=== PATIENT | male | born 1945 | race Caucasian/White ===

== ENCOUNTER 2019-11-28 06:49 | Inpatient (IN) | payer MEDICARE, SELFPAY ==
[2019-11-28] VITALS (8 sets, daily range): BP systolic 151–163; BP diastolic 79–109; PULSE 76–93; RESP 12–20; TEMP 36.5–37; O2SAT 98–100; BMI 23.8
--- NOTE | ~2019-11-28 | XR_ITS ---
EXAMINATION: XR chest 2V DATE: 11/30/2019 10:51 INDICATION: Pneumonia follow-up TECHNIQUE: frontal and lateral views of the chest were obtained. COMPARISON: Chest radiograph dated 11/28/2019 FINDINGS: No significant interval change in mild peripheral opacities at the lateral right upper lung zone. Sma ll bilateral pleural effusions evident only on the lateral projection. No new airspace opacities or p neumothorax. The cardiomediastinal silhouette is normal. Oral contrast in the stomach from recent [facility] ium swallow study. IMPRESSION: 1. Unchanged mild peripheral opacities in the right upper lobe consistent with pneumonia. 2. Small bilateral pleural effusions. Reviewed, dictated and finalized at location B.
--- NOTE | ~2019-11-28 | CT_ITS ---
EXAMINATION: CT brain wo con DATE: 11/28/2019 08:41 INDICATION: Altered mental status. Confusion. TECHNIQUE: Computed tomography (CT) of the head was performed without intravenous contrast. The mA wa s adjusted according to patient size. Iterative reconstruction technique was employed. The dose-lengt h product was 605.33 mGy-cm. COMPARISON: Head CT 07/26/2018 FINDINGS: There are scattered areas of low attenuation in the cerebral white matter. There is no intr acranial hemorrhage, acute infarction, or abnormal intracranial mass lesion. The ventricles are ashley l in size. There is mild mucosal thickening in the paranasal sinuses. The mastoid air cells are ashley l. The orbits are normal. IMPRESSION: 1. Unchanged moderate nonspecific cerebral white matter disease, which likely represents chronic smal l vessel ischemic disease. Reviewed, dictated and finalized at location A. IMPRESSION: 1. Unchanged moderate nonspecific cerebral white matter disease, which likely r epresents chronic small vessel ischemic disease.
--- NOTE | ~2019-11-28 | XR_ITS ---
XR chest 2V DATE: 12/02/2019 09:31 INDICATION: Pneumonia follow-up TECHNIQUE: AP and lateral views COMPARISON: 11/30/2019, 11/28/2019, 01/11/2019 2 view chest radiographic examinations FINDINGS: Mild asymmetric interstitial prominence is again noted in the right upper lobe, stable sinc e 12/01/2019. Otherwise no pulmonary consolidation. No pleural effusion or pulmonary vascular congestio n or pneumothorax. Heart size is within normal limits. Is aortic calcification. Diffuse osteopenia. Degenerative changes of the thoracic and lumbar spine. IMPRESSION: No significant change since 12/01/2019; mild interstitial fibrotic change or pneumonitis, r ight upper lobe Reviewed, dictated and finalized at location A. IMPRESSION: No significant change since 12/01/2019; mild interstitial fibrotic ch julio or pneumonitis, right upper lobe
--- NOTE | ~2019-11-28 | CT_ITS ---
EXAMINATION: CT cervical spine wo con DATE: 11/28/2019 08:41 INDICATION: Neck injury. Altered mental status. TECHNIQUE: Computed tomography (CT) of the cervical spine was performed without intravenous contrast. Automated exposure control and iterative reconstruction technique were employed. The dose-length pro duct was 192.94 mGy-cm. COMPARISON: None FINDINGS: There is 9 degrees levocurvature of cervicothoracic spine. There is 2 mm anterolisthesis of C3 on C4 and C6 on C7. Vertebral body heights are normal. There is moderately decreased disc height at C2-C3 and C3-C4 and severely decreased disc height at C4-C5, C5-C6, and C6-C7. The following disc levels are specifically discussed: C2-C3: There is mild right and moderate left uncovertebral joint osteoarthritis. There is severe righ t and mild left facet joint osteoarthritis. There is mild left neural foraminal stenosis. There is no central canal stenosis. C3-C4: There is mild bilateral uncovertebral joint osteoarthritis. There is severe bilateral facet lamine int osteoarthritis. There is mild bilateral neural foraminal stenosis. There is mild central canal st enosis. C4-C5: There is severe right and moderate left uncovertebral joint osteoarthritis. There is mild bila teral facet joint osteoarthritis. There is moderate right and mild left neural foraminal stenosis. Th ere is mild central canal stenosis. C5-C6: There is severe bilateral uncovertebral joint osteoarthritis. There is severe right and modera te left facet joint osteoarthritis. There is moderate right and mild left neural foraminal stenosis. There is mild central canal stenosis. C6-C7: There is mild bilateral uncovertebral joint osteoarthritis. There is severe right and moderate left facet joint osteoarthritis. There is mild right neural foraminal stenosis. There is mild centra l canal stenosis. C7-T1: There is no uncovertebral joint osteoarthritis. There is mild bilateral facet joint osteoarthr itis. There is no neural foraminal stenosis. There is no central canal stenosis. IMPRESSION: 1. No fracture. 2. Severe cervical spondylosis. Reviewed, dictated and finalized at location A.
--- NOTE | ~2019-11-28 | XR_ITS ---
EXAMINATION: XR chest 2V DATE: 11/28/2019 08:42 INDICATION: Altered mental status. Weakness. TECHNIQUE: Frontal and lateral views of the chest were obtained. COMPARISON: Chest 2 views 01/11/2019, CT abdomen and pelvis 01/23/2019 FINDINGS: There are mild peripheral airspace opacities in right upper lobe. There is mild atelectasis in the lower lung zones. No pleural effusion or pneumothorax. The heart size is normal. IMPRESSION: 1. Mild peripheral airspace opacities in right upper lobe, consistent with pneumonia. Reviewed, dictated and finalized at location A. IMPRESSION: 1. Mild peripheral airspace opacities in right upper lobe, consistent with pneu monia.
--- NOTE | ~2019-11-28 | XR_ITS ---
EXAMINATION: XR barium swallow modified DATE: 11/29/2019 13:19 INDICATION: Advanced Parkinson's disease. TECHNIQUE: The patient was given barium-containing material of multiple consistencies to swallow by t nick speech pathologist while I performed fluoroscopy. Fluoroscopy exposure time was 0.9 minutes. The n umber of fluoroscopy images saved to the PACS was 1. Dose-area product was 1.37 Gy-cm^2. FINDINGS: There was no laryngeal penetration or aspiration. IMPRESSION: 1. No laryngeal penetration or aspiration. 2. Please refer to the speech therapy report for recommendations. Reviewed, dictated and finalized at location A.
--- NOTE | 2019-11-28 07:01 | ED.AMS ---
HPI - Altered Mental Status General Chief Complaint: Altered Mental Status Stated Complaint: AMS Time Seen by Provider: 11/28/19 06:56 Source: EMS Mode of arrival: EMS Limitations: clinical condition History of Present Illness HPI narrative: A 74 y/o male pt presents to the ED, via EMS from home, with c/o AMS. Per EMS pt was found on the floor of his hallway at home, and the pt was covered in dried feces and urine. EMS notes discharge to pt's eyes bilaterally. EMS states that the was unable to give EMS any information regarding how long the pt had been down or any PMHx. Per EMS, it seems that the is unable to care for the pt. Upon arrival to the ED, pt had on JUANA hose that were covered in different stages of urine and feces. Per old records, pt has a PMHx of Parkinson's disease, enlarged prostate, HTN, Hypercholesterolemia, and GERD. A complete HPI is limited d/t pt's clinical condition. MD complaint: altered mental status Onset (ago): unknown Related Data Home Medications Medication Instructions Recorded Confirmed atorvastatin 10 mg tablet 10 mg PO DAILY 07/11/19 08/02/19 carbidopa 25 mg-levodopa 100 mg 1 tablet PO TID 07/11/19 08/02/19 tablet ergocalciferol (vitamin D2) 1,250 50,000 unit PO WEEKLY 07/11/19 08/02/19 mcg (50,000 unit) capsule finasteride 5 mg tablet 5 mg PO DAILY 07/11/19 08/02/19 lisinopril 10 mg tablet 10 mg PO DAILY 07/11/19 08/02/19 metoprolol tartrate 25 mg tablet 25 mg PO BID tablet 07/11/19 08/02/19 tamsulosin 0.4 mg capsule 0.4 mg PO DAILY 07/11/19 08/02/19 tobramycin 0.3 % eye ointment 1 applic EACH EYE BID gm 07/11/19 08/02/19 omeprazole magnesium [Prilosec OTC] 20 mg PO DAILY 11/28/19 Allergies Allergy/AdvReac Type Severity Reaction Status Date / Time No Known Allergies Allergy Verified 11/28/19 07:58 Review of Systems Review of Systems: Narrative: A complete ROS is limited d/t to pt's clinical condition. Neurologic: Reports other (AMS) PMFSH Past Medical History Medical History (Updated 11/28/19 @ 10:51 by Mayi Corona MD) Ny's esophagus with esophagitis BPH without obstruction/lower urinary tract symptoms Dementia associated with Parkinson's disease Essential (primary) hypertension Hyponatremia Mixed hyperlipidemia Recurrent deep vein thrombosis (DVT) Schizophrenia in remission Surgical History Surgical History (Updated 11/28/19 @ 08:12 by Marita ClintonInternal Gaming) Surgical history unknown Family History Family History (Updated 01/11/19 @ 13:18 by DOCTOR UNKNOWN) Mother Family history of cardiovascular disease, Onset Age: 80 Father Acute myocardial infarction, Onset Age: 72 Other Family history of lupus erythematosus Hypertension Social History Social History (Updated 11/28/19 @ 08:33 by Marita ClintonInternal Gaming) Smoking status: Never smoker Alcohol intake: never Living arrangements: with family Additional living arrangements comments: Lives at home with spouse. Exam Const: General: cooperative, no acute distress, alert and poor hygiene (dried food and dried secretions in pt's ortiz, covered in dried feces/urine) Nutritional Appearance: well nourished HENMT: Mouth: Yes lip normal and Yes moist mucous membranes Eyes: Conjunctivae: other (conjuctivael discharge) Resp: Effort & Inspection: normal respiratory effort Auscultation: clear to auscultation bilaterally Cardio: Rate: regular rate Rhythm: regular rhythm GI: GI Palp: Yes Soft to palpation and No Tenderness to palpation present (GI) Auscultation: normal bowel sounds Skin: General skin exam: normal color Neuro: General: patient oriented x3 Cognition (Neuro): normal cognition Speech: normal speech Extrem: General: normal to inspection, full ROM, pedal edema bilaterally and other (weakness in bilateral upper and lower extremities) Other: bilateral pedal pulses present Psych: Mental Status: mental status grossly normal Aff
--- NOTE | 2019-11-28 07:21 | ECG_ITS ---
Measurements Intervals [place] Rate: 74 P: 62 VT: 197 QRS: -14 QRSD: 90 T: 65 QT: 396 QTc: 440 Interpretive Statements SINUS RHYTHM BASELINE ARTIFACT- I, II, III, AVR, AVL, AVF, V1-V6 BORDERLINE ECG Electronically Signed On 11-28-2019 8:11:22 CDT by Christian Means D.O.
--- NOTE | 2019-11-28 07:32 | PC.NURSE ---
This nurse contacts Care coordination, and spoke with Ree to hotline patient. Ree, from Care coordination stated she will contact the department of aging.
--- NOTE | 2019-11-28 07:54 | PC.NURSE ---
amy. IV attempts, unsuccessful, attempting U/S IV and labs at this time
--- NOTE | 2019-11-28 07:57 | PC.NURSE ---
Called and spoke to Stephany Ortiz to give update on pt. This is pt's daughter. [phone].
--- NOTE | 2019-11-28 07:59 | PCCCNOTE ---
Spoke with the 24 hr [place] [facility] hotline at [phone] to communicate the concerns of TIFFANY Juarez regarding the condition of this patient upon arrival. Was able to provide information based upon the RN initial assessment and the physican documentation available at the time of the call. Provided the home address of patient and the name/ of his primary caregiver/spouse Joya Anna. Contact number for the local agency assigned to this case is - [facility].
[2019-11-28 08:06] LABS: Add Urine Microscopic? YES; Appearance Urine Clear (Clear); Bacteria Urine Trace /hpf; Bilirubin Urine Negative (Negative); Blood Urine Negative (Negative); Color Urine Yellow (Yellow); Glucose Urine UA Negative (Negative); Ketones Urine Negative (Negative); Leukocyte Esterase Ur Negative LEU/UL (Negative); Mucus Urine Rare /lpf; Nitrate Urine Negative (Negative); Protein Urine Negative (Negative); RBC Urine 0-2 /hpf (0-2); Specific Grav Ur 1.014 (1.001-1.035); Squamous Epithelial Cell Urine Rare /hpf (Few)
[2019-11-28 08:13] LABS: Basophils Percent Auto 0.2 % (0.2-1.2); Hematocrit 34.9 % (42.0-52.0); Hemoglobin 11.9 g/dL (14.0-18.0); Immature Granulocyte Absolute 0.09 K/mm3 (0.00-0.031); Immature Granulocyte Percent A 0.9 % (0-0.5); Lymphocytes Absolute Auto 0.59 K/mm3 (0.9-3.2); Lymphocytes Percent Auto 5.8 % (18.3-44.2); Mean Corpuscular HGB Conc 34.1 g/dl (32-36); Mean Corpuscular Hemoglobin 31.6 pg (26-34); Mean Corpuscular Volume 92.8 fl (80-100); Mean Platelet Volume 9.6 fl (7.4-10.4); Monocytes Absolute Auto 0.8 K/mm3 (0.1-0.6); Monocytes Percent Auto 7.7 % (2.6-8.5); Neutrophils Absolute Auto 8.6 K/mm3 (1.3-6.7); Neutrophils Percent Auto 85.4 % (45.5-73.1); Platelet Count Result 226 k/mm3 (150-375); Red Blood Count 3.76 M/mm3 (4.6-6.20); Red Cell Distribution Width 13.4 % (11.5-14.5); White Blood Count 10.1 K/mm3 (4.5-10.0)
[2019-11-28 08:24] LABS: INR 1.1; Partial Thromboplastin Time 28.6 SECONDS (22.3-36.8); Prothrombin Time 14.2 Seconds (11.1-14.7)
[2019-11-28 08:25] LABS: Alanine Aminotransferase 22 U/L (4-50); Alkaline Phosphatase 60 U/L (38-126); Aspartate Amino Transferase 23 U/L (17-59); Bilirubin,Total 0.5 mg/dL (0.2-1.3); Blood Urea Nitrogen 20 mg/dL (9-20); Carbon Dioxide 32 mmol/L (22-30); Chloride 90 mmol/L (98-107); Creatine Kinase 80 U/L (55-170); Estimated Glomerular Filt Rate > 60; Glucose 99 mg/dL (75-110); Potassium 4.5 mmol/L (3.4-5.0); Sodium 128 mmol/L (137-145)
--- NOTE | 2019-11-28 10:09 | PC.NURSE ---
Dietary tray ordered for pt for 1145.
--- NOTE | 2019-11-28 10:38 | ADMGEN ---
This patient, Michael Anna, was admitted to 3 [facility] Surg Room 304-01. Patient/family oriented to hospital policies and general routines including ID bracelet, bed and alarms, visiting hours, pain management, procedures, bathroom and other care routines, personal items, smoking policy, room service/diet, and visiting hours. Valuables list has been completed. Information on how to activate the Rapid Response Team has been discussed. Patient/Family are encouraged to report perceived risks to care and to ask questions if they do not understand what they are told or what they should do.
--- NOTE | 2019-11-28 12:08 | PM.IMHP ---
H&P: HPI History of Present Illness Chief complaint: Pneumonia/Altered Mental Status Narrative: Michael Anna is a 74 year old male who was living at home with his spouse. He was becoming gradually more immobile over the past few days. He was urinating on himself. He was more confused than his usual baseline. His was unable to care for him. He was brought the emergency department by ambulance where he was found to have right upper lung infiltrate. He was not coughing or complaining of pain. He had no fever. No recent travel. No known exposure to ill individuals. He does have advanced Parkinson's disease with dementia associated with that. History is obtained by review of the chart and from emergency room personnel who obtained history from EMS personnel. Review of Systems Review of Systems: ROS unobtainable: Yes unobtainable due to medical condition PMFSH Past Medical History Medical History Ny's esophagus with esophagitis BPH without obstruction/lower urinary tract symptoms Dementia associated with Parkinson's disease Essential (primary) hypertension Hyponatremia Mixed hyperlipidemia Recurrent deep vein thrombosis (DVT) Schizophrenia in remission Surgical History Surgical History (Updated 11/28/19 @ 15:23 by Vance Mohr MD) History of exploratory laparotomy for bowel obstruction Family History Family History Mother Family history of cardiovascular disease, Onset Age: 80 Father Acute myocardial infarction, Onset Age: 72 Other Family history of lupus erythematosus Hypertension Social History Social History (Updated 11/28/19 @ 15:24 by Vance Mohr MD) Smoking status: Never smoker Second hand tobacco smoke exposure: Yes ( many years from brother and work ) Alcohol intake: never Substance use: never Living arrangements: with family Additional living arrangements comments: Lives at home with spouse. Occupation/Education: retired Gender identity (if verbalized by the patient): Male Spiritual care concerns: No Agree to blood products: Yes Meds Home Medications and Allergies Home Medications Medication Instructions Recorded Confirmed Type atorvastatin 10 mg tablet 10 mg PO DAILY 07/11/19 11/28/19 History carbidopa 25 mg-levodopa 100 mg 1 tablet PO TID 07/11/19 11/28/19 History tablet finasteride 5 mg tablet 5 mg PO DAILY 07/11/19 11/28/19 History lisinopril 10 mg tablet 10 mg PO DAILY 07/11/19 11/28/19 History metoprolol tartrate 25 mg tablet 25 mg PO BID tablet 07/11/19 11/28/19 History tamsulosin 0.4 mg capsule 0.4 mg PO DAILY 07/11/19 11/28/19 History apixaban [Eliquis] 5 mg PO BID 11/28/19 11/28/19 History omeprazole magnesium [Prilosec OTC] 20 mg PO DAILY 11/28/19 11/28/19 History Allergies Allergy/AdvReac Type Severity Reaction Status Date / Time No Known Allergies Allergy Verified 11/28/19 07:58 Vital Signs Vital Signs - 24 hr 11/28/19 06:48 11/28/19 07:48 11/28/19 08:52 Temperature 98.6 F Pulse Rate 84 78 83 Respiratory Rate 20 14 12 Blood Pressure 160/109 H 161/92 H 163/82 H Pulse Oximetry 98 98 98 11/28/19 10:05 11/28/19 10:22 Temperature Pulse Rate 88 93 Respiratory Rate 14 19 Blood Pressure 159/85 H 158/88 H Pulse Oximetry 98 100 Exam Narrative: Exam Narrative: GENERAL: Nonverbal, chronically ill-appearing gentleman lying in his hospital bed HEENT: EOMI, PERRL, sclera nonicteric, pharyngeal mucosa pink, dry, and intact NECK: No JVD, adenopathy, or thyromegaly CHEST: Coarse breath sounds. Mild tachypnea HEART: NL S1/S2, regular, no murmur ABDOMEN: BS+, soft, nontender, no mass, no bruits EXTREMITIES: No cyanosis, edema, or clubbing NEUROLOGIC: CN intact and symmetric to inspection. Mask facies MUSCULOSKELETAL: Tone and strength symmetric. With increased tone in all 4
[2019-11-28] MEDS: CARBIDOPA/LEVODOPA 25/100 MG TABLET 1 TABLET PO ×2 (13:01→17:58)
[2019-11-28] MEDS: PANTOPRAZOLE 40 MG TABLET PO (13:01)
--- NOTE | 2019-11-28 16:31 | PCDIET ---
MST screen: Pt assessed. Agree with regular diet at this time. Thrive ordered BID to help meet needs in light of lower PO intake and report of wt loss. Recommend r/o dysphasia due to advance Parkinson's, dementia. RD will follow every three days.
[2019-11-28] MEDS: APIXABAN 5 MG TABLET PO (17:58)
[2019-11-28] MEDS: AMPICILLIN SODIUM/SULBACTAM 3 GM in SODIUM CHLORIDE 0.9% IV 100 ML IVPB ×2 (18:19→23:55)
[2019-11-28] MEDS: METOPROLOL TARTRATE 25 MG TABLET PO (20:03)
[2019-11-29 06:00] VITALS: BP 128/53; PULSE 68; RESP 18; TEMP 36.9; O2SAT 94
[2019-11-29] MEDS: AMPICILLIN SODIUM/SULBACTAM 3 GM in SODIUM CHLORIDE 0.9% IV 100 ML IVPB ×3 (06:08→17:14)
[2019-11-29 08:25] VITALS: PULSE 68
[2019-11-29] MEDS: PANTOPRAZOLE 40 MG TABLET PO (08:25)
[2019-11-29] MEDS: METOPROLOL TARTRATE 25 MG TABLET PO (08:25)
[2019-11-29] MEDS: lisinopriL 10 MG TABLET PO (08:25)
[2019-11-29] MEDS: FINASTERIDE 5 MG TABLET PO (08:25)
[2019-11-29] MEDS: TAMSULOSIN HCL 0.4 MG CAPSULE PO (08:25)
[2019-11-29] MEDS: ATORVASTATIN 10 MG TABLET PO (08:26)
[2019-11-29] MEDS: CARBIDOPA/LEVODOPA 25/100 MG TABLET 1 TABLET PO ×3 (08:26→17:11)
[2019-11-29] MEDS: APIXABAN 5 MG TABLET PO ×2 (08:26→17:11)
[2019-11-29 10:11] LABS: Immature Reticulocyte Fraction 7.2 % (3.0-15.9); Reticulocyte Hemoglobin Conten 38.5 pg (28.2-35.7); Reticulocyte Percent 2.07 % (0.7-4.3); Reticulocytes Absolute 0.07 B/L (32.2-175.7)
[2019-11-29 10:12] LABS: Hematocrit 32.5 % (42.0-52.0); Hemoglobin 11.1 g/dL (14.0-18.0); Mean Corpuscular HGB Conc 34.2 g/dl (32-36); Mean Corpuscular Hemoglobin 31.8 pg (26-34); Mean Corpuscular Volume 93.1 fl (80-100); Mean Platelet Volume 9.3 fl (7.4-10.4); Platelet Count Result 200 k/mm3 (150-375); Red Blood Count 3.49 M/mm3 (4.6-6.20); Red Cell Distribution Width 13.1 % (11.5-14.5); White Blood Count 6.6 K/mm3 (4.5-10.0)
[2019-11-29 10:23] LABS: Creatine Kinase 139 U/L (55-170)
[2019-11-29 10:27] LABS: Alanine Aminotransferase 14 U/L (4-50); Albumin Level 3.4 g/dL (3.5-5.1); Alkaline Phosphatase 49 U/L (38-126); Aspartate Amino Transferase 27 U/L (17-59); Blood Urea Nitrogen 10 mg/dL (9-20); CRP 1.9 mg/dL (<1.0); Calcium 8.6 mg/dL (8.4-10.2); Carbon Dioxide 30 mmol/L (22-30); Chloride 94 mmol/L (98-107); Estimated CRCL calculation 86 ml/min; Estimated Glomerular Filt Rate > 60; Glucose 116 mg/dL (75-110); Potassium 3.5 mmol/L (3.4-5.0); Sodium 129 mmol/L (137-145)
[2019-11-29 10:43] LABS: Iron 40 ug/dL (49-181)
[2019-11-29 10:52] LABS: Percent Iron Saturation 15 % (20-50)
[2019-11-29 11:50] LABS: Folic Acid 12.4 ng/mL (2.76->20)
--- NOTE | 2019-11-29 12:15 | CONS_ITS ---
DATE OF CONSULTATION: 11/28/[address] Vance Mohr. HISTORY OF PRESENT ILLNESS: 74-year-old right-handed male has been admitted to [facility] through the emergency room with information that he was living at home with spouse, gradually getting immobile over the last several days, urinating on himself, increasingly more confused than his baseline, and was totally unable to care for him. The patient does have ongoing history of 1. Dementia. 2. Parkinson disease. 3. History of Ny esophagus. 4. History of benign prostatic hypertrophy. 5. Hypertension. 6. Hyperlipidemia. 7. Recurrent DVT. 8. Schizophrenia in remission. Never smoker, never drinker. MEDICATIONS: At the time of admission to the hospital, he was taking 1. Atorvastatin 10 mg daily. 2. Carbidopa levodopa 1 tab 3 times a day. 3. Finasteride 5 mg daily. 4. Lisinopril 10 mg daily. 5. Metoprolol 25 mg twice a day. 6. Tamsulosin 0.4 mg daily. 7. Apixaban 5 mg twice a day. 8. Omeprazole 20 mg daily. ALLERGIES: HE IS NOT ALLERGIC TO ANY MEDICATION. PHYSICAL EXAMINATION: VITAL SIGNS: Evaluation up until now revealed him to be afebrile with pulse of 84, respiration 20, blood pressure 160/109, pulse ox 98%, GENERAL: He is awake, alert, nonverbal. HEAD: Normocephalic with no cranial bruit. EAR, NOSE, THROAT: Normal. NECK: Supple with no cervical bruit. No thyromegaly. No lymphadenopathy. HEART: Regular with no murmur. LUNGS: Clear with no rhonchi or crepitation. ABDOMEN: Soft with normal bowel sounds. NEUROLOGICAL: He is awake, alert, disoriented. Pupils round, regular. Mendez of vision intact to the finger confrontation. There is no spontaneous nystagmus. Motor examination revealed him to have increased tone in all 4 extremities. Reflexes were symmetrical but not hyper. Plantars were downgoing. LABORATORY STUDIES: Evaluation up until now has documented him to have normal CBC, WBC 10.1, platelet count 226, hemoglobin 11.9. Normal basic metabolic panel except sodium 128 with chloride 90 and CO2 of 32. CPK only 80. Hepatic enzymes normal. UA normal. The patient has been admitted to the hospital for the right-sided pneumonia with upper lobe infiltration, has been started azithromycin, oxygen. Anti-Parkinson's medications will continue such and so as the other medication. Further adjustment will be made accordingly. PAOLA MEDRANO M.D. LATH TIER LATH TIER D I MT: Selene
--- NOTE | 2019-11-29 13:22 | P.PNIM_ITS ---
Progress Note: A&P Assessment and Plan (1) Pneumonia: Qualifiers: Laterality: right Lung location: upper lobe of lung Pneumonia type: due to unspecified organism Qualified Code(s): J18.9 - Pneumonia, unspecified organism Code(s): J18.9 - Pneumonia, unspecified organism Status: Acute Assessment and Plan: * Right upper lobe infiltrate suggested possible aspiration, but MBS 4/2 negative * Azithromycin and Unasyn day 2 * Oxygen as needed * Monitor clinical response (2) Altered mental status: Qualifiers: Altered mental status type: delirium Qualified Code(s): R41.0 - Disorientation, unspecified Code(s): R41.82 - Altered mental status, unspecified Status: Acute Assessment and Plan: * Likely metabolic encephalopathy superimposed upon his chronic dementia (3) Hyponatremia: Code(s): E87.1 - Hypo-osmolality and hyponatremia Status: Acute Assessment and Plan: * Clinically due to dehydration as BUN to creatinine ratio 4 was 40 and oral intake has been poor * Has chronic mild hyponatremia, a bit worse upon admission, perhaps chronic mild SIADH * IV saline for hydration * Follow-up lab, FENA (4) Dementia associated with Parkinson's disease: Code(s): G20 - Parkinson's disease; F02.80 - Dementia in other diseases classified elsewhere without behavioral disturbance Status: Acute Assessment and Plan: * Seems to have progressed * Assess after treatment of infection (5) Essential (primary) hypertension: Code(s): I10 - Essential (primary) hypertension Status: Acute Assessment and Plan: * Continue home regimen (6) Ny's esophagus with esophagitis: Code(s): K22.70 - Ny's esophagus without dysplasia; K20.9 - Esophagitis, unspecified Status: Acute Assessment and Plan: * PPI for acid suppression (7) BPH without obstruction/lower urinary tract symptoms: Code(s): N40.0 - Benign prostatic hyperplasia without lower urinary tract symptoms Status: Acute Assessment and Plan: * Continue tamsulosin (8) Schizophrenia in remission: Code(s): F20.9 - Schizophrenia, unspecified Status: Acute Assessment and Plan: * Continue home regimen (9) History of DVT in adulthood: Code(s): Z86.718 - Personal history of other venous thrombosis and embolism Status: Acute Assessment and Plan: * Continue apixaban Subjective Date/time seen: 11/29/19 13:22 Interval history: Admitted 11/27 with RUL PNA and inability to care for self. 11/28 Feeling much better. Passed MBS. Denied pain. Review of Systems Review of Systems: ROS unobtainable: Yes unobtainable due to mental status Exam Narrative: Exam Narrative: HEENT: EOMI, PERRL, sclerae nonicteric, pharyngeal mucosa pink and intact NECK: No JVD CHEST: Clear to auscultation. Normal effort. HEART: NL S1/S2, regular, no murmur ABDOMEN: BS+, soft, nontender, no mass, no bruits EXTREMITIES: No cyanosis, edema, or clubbing NEUROLOGIC: CN intact and symmetric to inspection. MUSCULOSKELETAL: Tone and strength symmetric, with cogwheeling, rigidity, bilaterall UE rest tremor PSYCH: Alert. Oriented to person. Objective Data Vital Signs Vital Signs: Vital Signs - 24 hr 11/28/19 14:00 11/28/19 20:03 11/28/19 22:00 Temperature 97.7 F 98.1 F Pulse Rate 93 76 77 Respiratory Rate 16 18 Blood Pressur
--- NOTE | 2019-11-29 13:22 | PM.IMPN ---
Progress Note: A&P Assessment and Plan (1) Pneumonia: Qualifiers: Laterality: right Lung location: upper lobe of lung Pneumonia type: due to unspecified organism Qualified Code(s): J18.9 - Pneumonia, unspecified organism Code(s): J18.9 - Pneumonia, unspecified organism Status: Acute Assessment and Plan: Right upper lobe infiltrate suggested possible aspiration, but MBS 4/2 negative Azithromycin and Unasyn day 2 Oxygen as needed Monitor clinical response (2) Altered mental status: Qualifiers: Altered mental status type: delirium Qualified Code(s): R41.0 - Disorientation, unspecified Code(s): R41.82 - Altered mental status, unspecified Status: Acute Assessment and Plan: Likely metabolic encephalopathy superimposed upon his chronic dementia (3) Hyponatremia: Code(s): E87.1 - Hypo-osmolality and hyponatremia Status: Acute Assessment and Plan: Clinically due to dehydration as BUN to creatinine ratio 11/27 was 40 and oral intake has been poor Has chronic mild hyponatremia, a bit worse upon admission, perhaps chronic mild SIADH IV saline for hydration Follow-up lab, FENA (4) Dementia associated with Parkinson's disease: Code(s): G20 - Parkinson's disease; F02.80 - Dementia in other diseases classified elsewhere without behavioral disturbance Status: Acute Assessment and Plan: Seems to have progressed Assess after treatment of infection (5) Essential (primary) hypertension: Code(s): I10 - Essential (primary) hypertension Status: Acute Assessment and Plan: Continue home regimen (6) Ny's esophagus with esophagitis: Code(s): K22.70 - Ny's esophagus without dysplasia; K20.9 - Esophagitis, unspecified Status: Acute Assessment and Plan: PPI for acid suppression (7) BPH without obstruction/lower urinary tract symptoms: Code(s): N40.0 - Benign prostatic hyperplasia without lower urinary tract symptoms Status: Acute Assessment and Plan: Continue tamsulosin (8) Schizophrenia in remission: Code(s): F20.9 - Schizophrenia, unspecified Status: Acute Assessment and Plan: Continue home regimen (9) History of DVT in adulthood: Code(s): Z86.718 - Personal history of other venous thrombosis and embolism Status: Acute Assessment and Plan: Continue apixaban Subjective Date/time seen: 11/29/19 13:22 Interval history: Admitted 11/27 with RUL PNA and inability to care for self. / Feeling much better. Passed MBS. Denied pain. Review of Systems Review of Systems: ROS unobtainable: Yes unobtainable due to mental status Exam Narrative: Exam Narrative: HEENT: EOMI, PERRL, sclerae nonicteric, pharyngeal mucosa pink and intact NECK: No JVD CHEST: Clear to auscultation. Normal effort. HEART: NL S1/S2, regular, no murmur ABDOMEN: BS+, soft, nontender, no mass, no bruits EXTREMITIES: No cyanosis, edema, or clubbing NEUROLOGIC: CN intact and symmetric to inspection. MUSCULOSKELETAL: Tone and strength symmetric, with cogwheeling, rigidity, bilaterall UE rest tremor PSYCH: Alert. Oriented to person. Objective Data Vital Signs Vital Signs: Vital Signs - 24 hr 11/28/19 14:00 11/28/19 20:03 11/28/19 22:00 Temperature 97.7 F 98.1 F Pulse Rate 93 76 77 Respiratory Rate 16 18 Blood Pressure 151/88 H 155/79 H Pulse Oximetry 100 99 11/29/19 06:00 11/29/19 08:25 Temperature 98.4 F Pulse Rate 68 68 Respiratory Rate 18 Blood Pressure 128/53 L Pulse Oximetry 94 Intake/Output Intake/Output: Intake & Output 11/26/19 11/27/19 11/28/19 11/29/19 23:59 23:59 23:59 23:59 Intake Total 700 1210 Output Total 75 Balance 625 1210 Meds/Results Medications: Active Medications Generic Name Dose Route Start Last Admin Trade Name Freq PRN Reason Stop Dose Admin Apixaban 5 mg 11/28/19 17:00 04
[2019-11-29 14:21] VITALS: BP 82/40; PULSE 59; RESP 16; TEMP 37.3; O2SAT 100
[2019-11-29] MEDS: SODIUM CHLORIDE 0.9% IV 500 ML IV CONT (14:56)
[2019-11-29] MEDS: KCL 20MEQ/0.9% SOD CHL 1,000 ML 100 ML IV CONT (18:36)
--- NOTE | 2019-11-29 18:49 | PC.NURSE ---
Notified Dr Levi Pt was given Saravanan mixture dosing was unclear and Pt was given three doses of 60mL. Dosing should have been 5mL. Spoke with pharmacy Ginger and she adjusted the mar to reflect the 5mL dose and will be notifiying IT of this issue. Dosing was calculated out by pharmacy Pt dosing did not exceed daily dosage on each element of the compound mixture.
[2019-11-29 19:40] VITALS: BP 101/44
[2019-11-29 21:34] VITALS: PULSE 58
[2019-11-29] MEDS: METOPROLOL TARTRATE 12.5 MG TABLET PO (21:34)
[2019-11-29 22:00] VITALS: BP 111/51; PULSE 58; RESP 18; TEMP 37.3; O2SAT 94
[2019-11-30] MEDS: AMPICILLIN SODIUM/SULBACTAM 3 GM in SODIUM CHLORIDE 0.9% IV 100 ML IVPB ×3 (00:18→16:04)
[2019-11-30] MEDS: KCL 20MEQ/0.9% SOD CHL 1,000 ML 100 ML IV CONT (05:15)
[2019-11-30 06:00] VITALS: BP 116/51; PULSE 56; RESP 18; TEMP 36.7; O2SAT 98
[2019-11-30 06:02] LABS: Blood Urea Nitrogen 12 mg/dL (9-20); Calcium 8.1 mg/dL (8.4-10.2); Carbon Dioxide 28 mmol/L (22-30); Chloride 96 mmol/L (98-107); Estimated CRCL calculation 86 ml/min; Estimated Glomerular Filt Rate > 60; Glucose 88 mg/dL (75-110); Potassium 4.4 mmol/L (3.4-5.0); Sodium 129 mmol/L (137-145)
[2019-11-30 06:03] LABS: Hematocrit 28.6 % (42.0-52.0); Hemoglobin 9.8 g/dL (14.0-18.0); Mean Corpuscular HGB Conc 34.3 g/dl (32-36); Mean Corpuscular Hemoglobin 31.9 pg (26-34); Mean Corpuscular Volume 93.2 fl (80-100); Mean Platelet Volume 9.5 fl (7.4-10.4); Platelet Count Result 185 k/mm3 (150-375); Red Blood Count 3.07 M/mm3 (4.6-6.20); Red Cell Distribution Width 13.5 % (11.5-14.5)
[2019-11-30] MEDS: APIXABAN 5 MG TABLET PO ×2 (08:53→16:05)
[2019-11-30] MEDS: FINASTERIDE 5 MG TABLET PO (08:53)
[2019-11-30] MEDS: CARBIDOPA/LEVODOPA 25/100 MG TABLET 1 TABLET PO ×3 (08:53→16:05)
[2019-11-30 08:56] VITALS: PULSE 54
[2019-11-30] MEDS: METOPROLOL TARTRATE 12.5 MG TABLET PO ×2 (08:56→20:39)
[2019-11-30] MEDS: TAMSULOSIN HCL 0.4 MG CAPSULE PO (08:58)
[2019-11-30] MEDS: PANTOPRAZOLE 40 MG TABLET PO (08:59)
[2019-11-30] MEDS: ATORVASTATIN 10 MG TABLET PO (08:59)
--- NOTE | 2019-11-30 09:50 | PCOTNOTE ---
OT evaluation attempted this AM. Patient confused and refusing to work with therapy at this time. Will attempt OT evaluation at later time.
[2019-11-30 12:24] LABS: Creatinine Urine 23.3 mg/dL
[2019-11-30 12:28] LABS: Sodium Urine Random 60 meq/L
--- NOTE | 2019-11-30 13:55 | PM.IMPN ---
Progress Note: A&P Assessment and Plan (1) Pneumonia: Qualifiers: Laterality: right Lung location: upper lobe of lung Pneumonia type: due to unspecified organism Qualified Code(s): J18.9 - Pneumonia, unspecified organism Code(s): J18.9 - Pneumonia, unspecified organism Status: Acute Assessment and Plan: Right upper lobe infiltrate suggested possible aspiration, but MBS 4/2 negative Azithromycin and Unasyn day 2 Oxygen as needed Monitor clinical response 11/30/19 13:55 patient is 74-year-old male with history of schizophrenia who resides with his and had been difficulty with ambulation more confusion urinary incontinence he was brought to the emergency department for further evaluation is found to have aspiration pneumonia being treated with Unasyn and azithromycin, patient has history of mild hyponatremia and slightly worse possibly resulting in his confusion, clinically he is not able to provide much detailed review of systems, insisting to go home, repeat x-ray today did not show significant change in infiltrates, plan is to continue present management with IV antibiotic gentle hydration and will continue to monitor will have a PT OT evaluate the patient (2) Altered mental status: Qualifiers: Altered mental status type: delirium Qualified Code(s): R41.0 - Disorientation, unspecified Code(s): R41.82 - Altered mental status, unspecified Status: Acute Assessment and Plan: Likely metabolic encephalopathy superimposed upon his chronic dementia (3) Hyponatremia: Code(s): E87.1 - Hypo-osmolality and hyponatremia Status: Acute Assessment and Plan: Clinically due to dehydration as BUN to creatinine ratio 11/27 was 40 and oral intake has been poor Has chronic mild hyponatremia, a bit worse upon admission, perhaps chronic mild SIADH IV saline for hydration Follow-up lab, FENA (4) Dementia associated with Parkinson's disease: Code(s): G20 - Parkinson's disease; F02.80 - Dementia in other diseases classified elsewhere without behavioral disturbance Status: Acute Assessment and Plan: Seems to have progressed Assess after treatment of infection (5) Essential (primary) hypertension: Code(s): I10 - Essential (primary) hypertension Status: Acute Assessment and Plan: Continue home regimen (6) Ny's esophagus with esophagitis: Code(s): K22.70 - Ny's esophagus without dysplasia; K20.9 - Esophagitis, unspecified Status: Acute Assessment and Plan: PPI for acid suppression (7) BPH without obstruction/lower urinary tract symptoms: Code(s): N40.0 - Benign prostatic hyperplasia without lower urinary tract symptoms Status: Acute Assessment and Plan: Continue tamsulosin (8) Schizophrenia in remission: Code(s): F20.9 - Schizophrenia, unspecified Status: Acute Assessment and Plan: Continue home regimen (9) History of DVT in adulthood: Code(s): Z86.718 - Personal history of other venous thrombosis and embolism Status: Acute Assessment and Plan: Continue apixaban Subjective Date/time seen: 11/30/19 13:55 patient is 74-year-old male with history of schizophrenia who resides with his and had been difficulty with ambulation more confusion urinary incontinence he was brought to the emergency department for further evaluation is found to have aspiration pneumonia being treated with Unasyn and azithromycin, patient has history of mild hyponatremia and slightly worse possibly resulting in his confusion, clinically he is not able to provide much detailed review of systems, insisting to go home, repeat x-ray today did not show significant change in infiltrates, plan is to continue present management with IV antibiotic gentle hydration and will continue to monitor will have a PT OT evaluate the patient Review of Systems Review of System
[2019-11-30 14:37] VITALS: BP 107/51; PULSE 63; RESP 16; TEMP 36.5; O2SAT 98
[2019-11-30 19:49] VITALS: PULSE 63; RESP 16; O2SAT 98
[2019-11-30 20:39] VITALS: PULSE 64
[2019-11-30 22:00] VITALS: BP 138/86; PULSE 52; RESP 18; TEMP 36.7; O2SAT 100
[2019-12-01] MEDS: KCL 20MEQ/0.9% SOD CHL 1,000 ML 100 ML IV CONT ×2 (00:36→15:26)
[2019-12-01] MEDS: AMPICILLIN SODIUM/SULBACTAM 3 GM in SODIUM CHLORIDE 0.9% IV 100 ML IVPB ×4 (00:39→17:52)
[2019-12-01 06:00] VITALS: BP 164/63; PULSE 77; RESP 16; TEMP 36.6; O2SAT 96
[2019-12-01] MEDS: CARBIDOPA/LEVODOPA 25/100 MG TABLET 1 TABLET PO ×3 (08:41→17:52)
[2019-12-01] MEDS: ATORVASTATIN 10 MG TABLET PO (08:41)
[2019-12-01] MEDS: APIXABAN 5 MG TABLET PO ×2 (08:41→17:52)
[2019-12-01 08:43] VITALS: PULSE 76
[2019-12-01] MEDS: METOPROLOL TARTRATE 12.5 MG TABLET PO ×2 (08:43→20:16)
[2019-12-01] MEDS: FINASTERIDE 5 MG TABLET PO (08:44)
[2019-12-01] MEDS: TAMSULOSIN HCL 0.4 MG CAPSULE PO (08:44)
[2019-12-01] MEDS: PANTOPRAZOLE 40 MG TABLET PO (08:44)
--- NOTE | 2019-12-01 11:20 | PM.IMPN ---
Progress Note: A&P Assessment and Plan (1) Pneumonia: Qualifiers: Laterality: right Lung location: upper lobe of lung Pneumonia type: due to unspecified organism Qualified Code(s): J18.9 - Pneumonia, unspecified organism Code(s): J18.9 - Pneumonia, unspecified organism Status: Acute Assessment and Plan: Right upper lobe infiltrate suggested possible aspiration, but MBS 4/ negative Azithromycin and Unasyn day 2 Oxygen as needed Monitor clinical response 12/01/19 11:20 patient is 74-year-old male with history of schizophrenia who resides with his and had been difficulty with ambulation more confusion urinary incontinence he was brought to the emergency department for further evaluation is found to have aspiration pneumonia being treated with Unasyn and azithromycin, patient has history of mild hyponatremia and slightly worse possibly resulting in his confusion, clinically he is not able to provide much detailed review of systems, insisting to go home, repeat x-ray on 11/29 did not show significant change in infiltrates, today is patient is little more awake and cooperative, is feeling little better, wants to go home, plan is to continue present management with IV antibiotic gentle hydration and will continue to monitor will have a PT OT evaluate the patient, patient is unable to take care of him will need the placement. (2) Altered mental status: Qualifiers: Altered mental status type: delirium Qualified Code(s): R41.0 - Disorientation, unspecified Code(s): R41.82 - Altered mental status, unspecified Status: Acute Assessment and Plan: Likely metabolic encephalopathy superimposed upon his chronic dementia (3) Hyponatremia: Code(s): E87.1 - Hypo-osmolality and hyponatremia Status: Acute Assessment and Plan: Clinically due to dehydration as BUN to creatinine ratio 11/27 was 40 and oral intake has been poor Has chronic mild hyponatremia, a bit worse upon admission, perhaps chronic mild SIADH IV saline for hydration Follow-up lab, FENA Will recheck tomorrow. (4) Dementia associated with Parkinson's disease: Code(s): G20 - Parkinson's disease; F02.80 - Dementia in other diseases classified elsewhere without behavioral disturbance Status: Acute Assessment and Plan: Seems to have progressed Assess after treatment of infection (5) Essential (primary) hypertension: Code(s): I10 - Essential (primary) hypertension Status: Acute Assessment and Plan: Continue home regimen (6) Ny's esophagus with esophagitis: Code(s): K22.70 - Ny's esophagus without dysplasia; K20.9 - Esophagitis, unspecified Status: Acute Assessment and Plan: PPI for acid suppression (7) BPH without obstruction/lower urinary tract symptoms: Code(s): N40.0 - Benign prostatic hyperplasia without lower urinary tract symptoms Status: Acute Assessment and Plan: Continue tamsulosin (8) Schizophrenia in remission: Code(s): F20.9 - Schizophrenia, unspecified Status: Acute Assessment and Plan: Continue home regimen (9) History of DVT in adulthood: Code(s): Z86.718 - Personal history of other venous thrombosis and embolism Status: Acute Assessment and Plan: Continue apixaban Subjective Date/time seen: 12/01/19 11:20 patient is 74-year-old male with history of schizophrenia who resides with his and had been difficulty with ambulation more confusion urinary incontinence he was brought to the emergency department for further evaluation is found to have aspiration pneumonia being treated with Unasyn and azithromycin, patient has history of mild hyponatremia and slightly worse possibly resulting in his confusion, clinically he is not able to provide much detailed review of systems, insisting to go home, repeat x-ray on 11/29 did not show significant [place]
[2019-12-01 14:00] VITALS: BP 93/47; PULSE 71; RESP 18; TEMP 36.6; O2SAT 97
[2019-12-01 17:30] VITALS: BP 160/58
--- NOTE | 2019-12-01 20:10 | PC.NURSE ---
[address] TEST EXAMINER notified that patient has thick, yellow drainage from bilateral eyes.
[2019-12-01 20:16] VITALS: PULSE 64
[2019-12-01 22:00] VITALS: BP 151/48; PULSE 68; RESP 16; TEMP 36.6; O2SAT 97
[2019-12-02] MEDS: AMPICILLIN SODIUM/SULBACTAM 3 GM in SODIUM CHLORIDE 0.9% IV 100 ML IVPB ×4 (00:13→16:55)
[2019-12-02] MEDS: KCL 20MEQ/0.9% SOD CHL 1,000 ML 100 ML IV CONT ×2 (03:17→15:23)
[2019-12-02] MEDS: QUEtiapine FUMARATE 25 MG TABLET PO (03:23)
[2019-12-02 04:32] LABS: Hemoglobin 10.3 g/dL (14.0-18.0); Mean Corpuscular HGB Conc 34.3 g/dl (32-36); Mean Corpuscular Hemoglobin 31.8 pg (26-34); Mean Corpuscular Volume 92.6 fl (80-100); Mean Platelet Volume 9.3 fl (7.4-10.4); Platelet Count Result 189 k/mm3 (150-375); Red Blood Count 3.24 M/mm3 (4.6-6.20); Red Cell Distribution Width 13.2 % (11.5-14.5); White Blood Count 5.2 K/mm3 (4.5-10.0)
[2019-12-02 05:03] LABS: Blood Urea Nitrogen 6 mg/dL (9-20); Calcium 8.3 mg/dL (8.4-10.2); Carbon Dioxide 31 mmol/L (22-30); Chloride 97 mmol/L (98-107); Estimated CRCL calculation 86 ml/min; Estimated Glomerular Filt Rate > 60; Glucose 88 mg/dL (75-110); Potassium 4.3 mmol/L (3.4-5.0); Sodium 127 mmol/L (137-145)
[2019-12-02 06:00] VITALS: BP 146/44; PULSE 74; RESP 18; TEMP 36.7; O2SAT 90
[2019-12-02 06:44] LABS: IFOB Positive Control Positive; Immunochemical Fecal Occult Bl Negative (N)
[2019-12-02 08:00] VITALS: PULSE 74; RESP 18; O2SAT 90
--- NOTE | 2019-12-02 09:01 | PCOTNOTE ---
Patient refused treatment this session due to eating breakfast. Will attempt at a later time.
[2019-12-02] MEDS: FINASTERIDE 5 MG TABLET PO (10:24)
[2019-12-02] MEDS: CARBIDOPA/LEVODOPA 25/100 MG TABLET 1 TABLET PO ×3 (10:24→16:37)
[2019-12-02] MEDS: ATORVASTATIN 10 MG TABLET PO (10:24)
[2019-12-02] MEDS: METOPROLOL TARTRATE 12.5 MG TABLET PO ×2 (10:25→21:18)
[2019-12-02] MEDS: APIXABAN 5 MG TABLET PO ×2 (10:25→16:38)
[2019-12-02] MEDS: PANTOPRAZOLE 40 MG TABLET PO (10:25)
[2019-12-02] MEDS: TAMSULOSIN HCL 0.4 MG CAPSULE PO (10:26)
--- NOTE | 2019-12-02 12:01 | P.PNIM_ITS ---
Progress Note: A&P Assessment and Plan (1) Pneumonia: Qualifiers: Laterality: right Lung location: upper lobe of lung Pneumonia type: due to unspecified organism Qualified Code(s): J18.9 - Pneumonia, unspecified organism Code(s): J18.9 - Pneumonia, unspecified organism Status: Acute Assessment and Plan: * Right upper lobe infiltrate suggested possible aspiration, but MBS 4/ negative * Azithromycin and Unasyn day 2 * Oxygen as needed * Monitor clinical response 12/02/19 12:01 patient is 74-year-old male with history of schizophrenia who resides with his and had been difficulty with ambulation more confusion urinary incontinence he was brought to the emergency department for further evaluation is found to have aspiration pneumonia being treated with Unasyn and azithromycin, patient has history of mild hyponatremia and slightly worse possibly resulting in his confusion, clinically he is not able to provide much detailed review of systems, insisting to go home, repeat x-ray on 11/29 did not show significant change in infiltrates, today is patient is little more awake and cooperative, is feeling little better, wants to go home, plan is to continue present management with IV antibiotic gentle hydration and will continue to monitor will have a PT OT evaluate the patient, patient is unable to take care of him will need the placement. Today patient right eye is draining, he denies any complaint cough or shortness of breath patient does have dementia, will start the patient on ophthalmology ciprofloxacin for right eye conjunctivitis, will continue present management with antibiotics repeat chest x-ray tomorrow, patient need placement as his is unable to take care of him. Social service is working on it (2) Altered mental status: Qualifiers: Altered mental status type: delirium Qualified Code(s): R41.0 - Disorientation, unspecified Code(s): R41.82 - Altered mental status, unspecified Status: Acute Assessment and Plan: * Likely metabolic encephalopathy superimposed upon his chronic dementia (3) Hyponatremia: Code(s): E87.1 - Hypo-osmolality and hyponatremia Status: Acute Assessment and Plan: * Clinically due to dehydration as BUN to creatinine ratio 11/27 was 40 and oral intake has been poor * Has chronic mild hyponatremia, a bit worse upon admission, perhaps chronic mild SIADH * IV saline for hydration * Follow-up lab, FENA * Will recheck tomorrow. (4) Dementia associated with Parkinson's disease: Code(s): G20 - Parkinson's disease; F02.80 - Dementia in other diseases classified elsewhere without behavioral disturbance Status: Acute Assessment and Plan: * Seems to have progressed * Assess after treatment of infection (5) Essential (primary) hypertension: Code(s): I10 - Essential (primary) hypertension Status: Acute Assessment and Plan: * Continue home regimen (6) Ny's esophagus with esophagitis: Code(s): K22.70 - Ny's esophagus without dysplasia; K20.9 - Esophagitis, unspecified Status: Acute Assessment and Plan: * PPI for acid suppression (7) BPH without obstruction/lower urinary tract symptoms: Code(s): N40.0 - Benign prostatic hyperplasia without lower urinary tract symptoms Status: Acute Assessment and Plan: * Continue tamsulosin (8) Schizophrenia in remission: Code(s): F20.9 - Schizophrenia, unspecified Status: Acute Assessment and Plan: * Continue home regimen (9) History of DVT in adulthood: C
[2019-12-02 14:00] VITALS: BP 145/60; PULSE 77; RESP 18; TEMP 36.6; O2SAT 92
[2019-12-02] MEDS: CIPROFLOXACIN HCL 0.3% OP SOLN 2.5 ML BTL 1 DROP EACH EYE ×2 (16:37→21:18)
[2019-12-02 21:18] VITALS: PULSE 114
[2019-12-02 22:00] VITALS: BP 138/61; PULSE 122; RESP 18; TEMP 36.4; O2SAT 99
[2019-12-03] MEDS: AMPICILLIN SODIUM/SULBACTAM 3 GM in SODIUM CHLORIDE 0.9% IV 100 ML IVPB ×3 (00:24→11:21)
[2019-12-03] MEDS: CIPROFLOXACIN HCL 0.3% OP SOLN 2.5 ML BTL 1 DROP EACH EYE ×4 (01:12→12:03)
[2019-12-03] MEDS: KCL 20MEQ/0.9% SOD CHL 1,000 ML 100 ML IV CONT (05:26)
[2019-12-03 05:31] LABS: Hematocrit 31.9 % (42.0-52.0); Hemoglobin 10.8 g/dL (14.0-18.0); Mean Corpuscular HGB Conc 33.9 g/dl (32-36); Mean Corpuscular Hemoglobin 31.8 pg (26-34); Mean Corpuscular Volume 93.8 fl (80-100); Platelet Count Result 193 k/mm3 (150-375); Red Cell Distribution Width 13.3 % (11.5-14.5)
[2019-12-03 05:42] LABS: Blood Urea Nitrogen 7 mg/dL (9-20); Calcium 8.7 mg/dL (8.4-10.2); Carbon Dioxide 29 mmol/L (22-30); Chloride 97 mmol/L (98-107); Estimated CRCL calculation 86 ml/min; Estimated Glomerular Filt Rate > 60; Glucose 85 mg/dL (75-110); Potassium 4.3 mmol/L (3.4-5.0); Sodium 129 mmol/L (137-145)
[2019-12-03 06:00] VITALS: BP 151/59; PULSE 61; RESP 18; TEMP 36.8; O2SAT 90
[2019-12-03 08:40] VITALS: PULSE 60
[2019-12-03] MEDS: ATORVASTATIN 10 MG TABLET PO (08:40)
[2019-12-03] MEDS: METOPROLOL TARTRATE 12.5 MG TABLET PO (08:40)
[2019-12-03] MEDS: FINASTERIDE 5 MG TABLET PO (08:40)
[2019-12-03] MEDS: CARBIDOPA/LEVODOPA 25/100 MG TABLET 1 TABLET PO ×2 (08:40→12:03)
[2019-12-03] MEDS: TAMSULOSIN HCL 0.4 MG CAPSULE PO (08:40)
[2019-12-03] MEDS: APIXABAN 5 MG TABLET PO (08:40)
[2019-12-03] MEDS: PANTOPRAZOLE 40 MG TABLET PO (08:41)
[2019-12-03] MEDS: SODIUM CHLORIDE 500 MG TABLET PO (08:41)
--- NOTE | 2019-12-03 11:21 | PCNFU ---
Nutrition Follow-Up Complete: Inadequate oral intake R/T reduced appetite as evidence by wt loss of 2-13lbs adn 50% PO intake Goal: PO intake of meals and supplements at 75% or greater for wt maintainence Patient goal has been met. Pt current nutrition is Soft and Bite Sized, Level 6. Nutrition recommendation: Agree Last recorded weight is 61 kg. Bowel Motility:+BM reported. Labs Reviewed:Cr 0.5,BUN 7,Na 129 Meds Noted:Eliquis,Lopressor,Lipitor Additional Notes:Patient had a repeat chest xray. Plans for placement when discharged. Oral Intake has zfpanygh-90-188% of meals. Breakfast-eggs, coffee,oj and milk. Patient is also receiving [employer] Ice Cream BID providing an additional 270 kcals and 9 gms protein. Agree with diet orders and supplements. Monitoring: PO intake, wt, labs every five days
--- NOTE | 2019-12-03 12:31 | PM.DS ---
DS: Diagnosis Admitting Diagnosis Admitting Diagnosis: Pneumonia, unspecified organism Discharge Diagnosis (1) Pneumonia: Qualifiers: Laterality: right Lung location: upper lobe of lung Pneumonia type: due to unspecified organism Qualified Code(s): J18.9 - Pneumonia, unspecified organism Code(s): J18.9 - Pneumonia, unspecified organism Status: Acute Assessment and Plan: Right upper lobe infiltrate suggested possible aspiration, but MBS / negative Azithromycin and Unasyn day 2 Oxygen as needed Monitor clinical response 12/02/19 12:01 patient is 74-year-old male with history of schizophrenia who resides with his and had been difficulty with ambulation more confusion urinary incontinence he was brought to the emergency department for further evaluation is found to have aspiration pneumonia being treated with Unasyn and azithromycin, patient has history of mild hyponatremia and slightly worse possibly resulting in his confusion, clinically he is not able to provide much detailed review of systems, insisting to go home, repeat x-ray on 11/29 did not show significant change in infiltrates, today is patient is little more awake and cooperative, is feeling little better, wants to go home, plan is to continue present management with IV antibiotic gentle hydration and will continue to monitor will have a PT OT evaluate the patient, patient is unable to take care of him will need the placement. Today patient right eye is draining, he denies any complaint cough or shortness of breath patient does have dementia, will start the patient on ophthalmology ciprofloxacin for right eye conjunctivitis, will continue present management with antibiotics repeat chest x-ray tomorrow, patient need placement as his is unable to take care of him. Social service is working on it (2) Altered mental status: Qualifiers: Altered mental status type: delirium Qualified Code(s): R41.0 - Disorientation, unspecified Code(s): R41.82 - Altered mental status, unspecified Status: Acute Assessment and Plan: Likely metabolic encephalopathy superimposed upon his chronic dementia (3) Hyponatremia: Code(s): E87.1 - Hypo-osmolality and hyponatremia Status: Acute Assessment and Plan: Clinically due to dehydration as BUN to creatinine ratio 11/27 was 40 and oral intake has been poor Has chronic mild hyponatremia, a bit worse upon admission, perhaps chronic mild SIADH IV saline for hydration Follow-up lab, FENA Will recheck tomorrow. (4) Dementia associated with Parkinson's disease: Code(s): G20 - Parkinson's disease; F02.80 - Dementia in other diseases classified elsewhere without behavioral disturbance Status: Acute Assessment and Plan: Seems to have progressed Assess after treatment of infection (5) Essential (primary) hypertension: Code(s): I10 - Essential (primary) hypertension Status: Acute Assessment and Plan: Continue home regimen (6) Ny's esophagus with esophagitis: Code(s): K22.70 - Ny's esophagus without dysplasia; K20.9 - Esophagitis, unspecified Status: Acute Assessment and Plan: PPI for acid suppression (7) BPH without obstruction/lower urinary tract symptoms: Code(s): N40.0 - Benign prostatic hyperplasia without lower urinary tract symptoms Status: Acute Assessment and Plan: Continue tamsulosin (8) Schizophrenia in remission: Code(s): F20.9 - Schizophrenia, unspecified Status: Acute Assessment and Plan: Continue home regimen (9) History of DVT in adulthood: Code(s): Z86.718 - Personal history of other venous thrombosis and embolism Status: Acute Assessment and Plan: Continue apixaban (10) Conjunctival adhesions and strands (localized), right eye: Code(s): H11.211 - Conjunctival adhesions and strands (localized), ri
== END 2019-12-03 14:30 | DRG 177 ==
LOC: ANHED 09:55 → ANH3MEDSUR 10:11
PROVIDERS: Admitting Provider Internal Medicine; Emergency Provider Emergency Medicine; PCP Family Medicine; Visit Provider Family Medicine
DX: J69.0 Pneumonitis due to inhalation of food and vomit (principal); G93.41 Metabolic encephalopathy; E87.1 Hypo-osmolality and hyponatremia; G20 Parkinson's disease; F02.80 Dementia in other diseases classified elsewhere, unspecified severity, without behavioral disturbance, psychotic disturbance, mood disturbance, and anxiety; K22.70 Barrett's esophagus without dysplasia; K21.0 Gastro-esophageal reflux disease with esophagitis; E86.0 Dehydration; I10 Essential (primary) hypertension; E78.2 Mixed hyperlipidemia; N40.0 Benign prostatic hyperplasia without lower urinary tract symptoms; R32 Unspecified urinary incontinence; F20.9 Schizophrenia, unspecified; H10.31 Unspecified acute conjunctivitis, right eye; Z86.718 Personal history of other venous thrombosis and embolism
CPT/HCPCS: 36415; 36569; 51701; 70450; 71046; 72125; 80048; 80053; 81001; 82274; 82550; 82570; 82607; 82746; 83540; 83550; 84300; 84443; 85025; 85027; 85046; 85610; 85730; 86140; 87040; 92610; 92611; 93005; 96365; 96375; 97110; 97116; 97161; 97165; 97530; 99285; A9270; C1751; J0295; J0456; J0696; J3480; J7040

== ENCOUNTER 2020-05-04 14:23 | Emergency (ER) | payer MEDICARE, SELFPAY ==
[2020-05-04] VITALS (12 sets, daily range): BP systolic 146–178; BP diastolic 84–93; PULSE 72–81; RESP 21–28; TEMP 37.1; O2SAT 96–100
--- NOTE | ~2020-05-04 | CT_ITS ---
EXAMINATION: CT brain wo con DATE: 05/04/2020 16:46 INDICATION: Fall. Generalized paresis. Confusion. TECHNIQUE: Computed tomography (CT) of the head was performed without intravenous contrast. The mA wa s adjusted according to patient size. Iterative reconstruction technique was employed. Exam dose: 60 5.33 mGy-cm total exam DLP. COMPARISON: 11/28/2019 CT brain FINDINGS: Examination is mildly limited by motion artifact. No intracranial mass lesion or hemorrhage, midline shift or mass effect is detected. There is moderat e central and cortical cerebral atrophy. No subdural or epidural hematoma is detected. No fracture or bone destruction of the cranial vault. Included mastoid air cells and paranasal sinuse s are normally developed and aerated. IMPRESSION: No acute intracranial abnormality or skull fracture Reviewed, dictated and finalized at [facility]. Reviewed, dictated and finalized at location [facility].
--- NOTE | ~2020-05-04 | XR_ITS ---
XR chest 1V portable DATE: 05/04/2020 14:42 INDICATION: Paresis. Weakness. TECHNIQUE: Portable AP chest on 05/04/2020 at 1444 hours COMPARISON: 12/02/2019 AP and lateral chest FINDINGS: Heart size appears within normal limits. Is aortic calcification. No hilar or mediastinal e nlargement. Mild elevation of right leaf of diaphragm. Chronic interstitial changes noted in the lateral right mi d to upper lung. No pulmonary infiltrate or consolidation, pleural effusion or pulmonary vascular con gestion or pneumothorax is detected. Diffuse osteopenia. Dextroscoliosis and degenerative change of the thoracic spine. IMPRESSION: No interval active disease or significant change since 12/02/2019 Reviewed, dictated and finalized at location [facility].
--- NOTE | 2020-05-04 14:24 | ECG_ITS ---
Measurements Intervals [place] Rate: 72 P: 15 [place]: 172 QRS: 12 QRSD: 96 T: 71 QT: 382 QTc: 420 Interpretive Statements SINUS RHYTHM BASELINE ARTIFACT- I, II, III, AVR, AVL, AVF, V1 NORMAL ECG Electronically Signed On 05-04-2020 15:35:41 CDT by Christian Means D.O.
[2020-05-04 15:13] LABS: Glucose Point of Care 116 (65-105)
[2020-05-04 15:17] LABS: Basophils Percent Auto 0.5 % (0.2-1.2); Eosinophils Percent Auto 0.5 % (0-4.4); Hematocrit 32.5 % (42.0-52.0); Hemoglobin 11.2 g/dL (14.0-18.0); Immature Granulocyte Absolute 0.03 K/mm3 (0.00-0.031); Immature Granulocyte Percent A 0.5 % (0-0.5); Lymphocytes Absolute Auto 1.17 K/mm3 (0.9-3.2); Lymphocytes Percent Auto 21.3 % (18.3-44.2); Mean Corpuscular HGB Conc 34.5 g/dl (32-36); Mean Corpuscular Hemoglobin 31.1 pg (26-34); Mean Corpuscular Volume 90.3 fl (80-100); Mean Platelet Volume 9.7 fl (7.4-10.4); Monocytes Absolute Auto 0.6 K/mm3 (0.1-0.6); Monocytes Percent Auto 10.2 % (2.6-8.5); Neutrophils Absolute Auto 3.7 K/mm3 (1.3-6.7); Platelet Count Result 174 k/mm3 (150-375); Red Cell Distribution Width 13.2 % (11.5-14.5); White Blood Count 5.5 K/mm3 (4.5-10.0)
[2020-05-04 15:33] LABS: Lactic Acid Reflex 0.8 mmol/L (0.7-2.1)
[2020-05-04 15:35] LABS: Add Urine Microscopic? YES; Appearance Urine Clear (Clear); Bacteria Urine Trace /hpf; Bilirubin Urine Negative (Negative); Blood Urine Negative (Negative); Color Urine Yellow (Yellow); Glucose Urine UA Negative (Negative); Ketones Urine Negative (Negative); Leukocyte Esterase Ur Negative LEU/UL (Negative); Mucus Urine Rare /lpf; Nitrate Urine Negative (Negative); Protein Urine Negative (Negative); RBC Urine 0-2 /hpf (0-2); Specific Grav Ur 1.015 (1.001-1.035); WBC Urine 0-3 /hpf
[2020-05-04 15:35] LABS: Albumin Level 4.1 g/dL (3.5-5.1); Alkaline Phosphatase 58 U/L (38-126); Anion Gap 6 mmol/L (8-16); Aspartate Amino Transferase 23 U/L (17-59); Blood Urea Nitrogen 16 mg/dL (9-20); Carbon Dioxide 29 mmol/L (22-30); Chloride 93 mmol/L (98-107); Estimated CRCL calculation 78 ml/min; Estimated Glomerular Filt Rate > 60; Glucose 102 mg/dL (75-110); Potassium 4.2 mmol/L (3.4-5.0); Sodium 128 mmol/L (137-145)
[2020-05-04 15:46] LABS: NT Pro B Type Natriuretic Pept 785 PG/ML (5-100); Troponin I < 0.012 ng/mL (0.000-0.034)
[2020-05-04 16:22] LABS: Alanine Aminotransferase < 6 U/L (4-50)
--- NOTE | 2020-05-04 16:36 | PC.NURSE ---
pt to ct via stretcher with radiology at this time.
--- NOTE | 2020-05-04 17:52 | ED.WEAKNESS ---
HPI - Weakness General Chief complaint: Weakness Stated complaint: WEAKNESS Source: family and EMS Mode of arrival: EMS Limitations: dementia History of Present Illness HPI Narrative: 75-year-old with a history of Lewy body dementia gait abnormality was sent from home with complaints of marked weakness since this morning. No history of fever or chills. Patient patient denies any pain at this time. MD Complaint: generalized weakness Onset (ago): day(s) (1) Duration: constant Location: generalized Migration: none Exacerbating factors: none Associated symptoms: denies other symptoms Related Data Allergies Allergy/AdvReac Type Severity Reaction Status Date / Time No Known Allergies Allergy Verified 05/04/20 14:49 Review of Systems Review of Systems: All systems reviewed & are unremarkable except as noted in HPI and below Constitutional: Constitutional: Reports no additional constitutional complaints Eyes: Eyes: Reports as per HPI ENT: Reports system reviewed and no additional complaints, except as documented Cardiovascular: Cardiovascular: Reports no additional cardiovascular complaints Respiratory: Respiratory: Reports no additional respiratory complaints Gastrointestinal: Gastrointestinal: Reports no additional gastrointestinal complaints Musculoskeletal: Musculoskeletal: Reports no additional musculoskeletal complaints [facility] Social History Social History Gender identity (if verbalized by the patient): Male Sexual Orientation (if Verbalized by the Patient): Straight or Heterosexual Exam Narrative: Exam Narrative: GENERAL: illl-appearing, thin , and in no acute distress. HEAD: Normocephalic, atraumatic. EYES: PERRLA and EOMI. ENT: Nares clear, no rhinorrhea or epistaxis. Mucous membranes moist. NECK: Supple. CHEST: Clear to auscultation. No respiratory distress. HEART: Regular rate and rhythm. No murmur heard. Normal peripheral pulses. ABDOMEN: Soft, nontender, nondistended, normal active bowel sounds. EXTREMITIES: Normal range of motion. No edema. SKIN: Warm, dry, no rash. NEURO: No focal deficits. Alert. PSYCH: Normal mood and affect. Course Vital Signs Vital signs: Vital Signs Temperature 37.1 C 05/04/20 14:41 Pulse Rate 73 05/04/20 14:41 Respiratory Rate 25 H 05/04/20 14:41 Blood Pressure 159/84 H 05/04/20 14:41 Pulse Oximetry 99 05/04/20 14:41 Temperature 37.1 C 05/04/20 14:41 Pulse Rate 81 05/04/20 16:32 Respiratory Rate 25 H 05/04/20 16:32 Blood Pressure 146/93 H 05/04/20 16:31 Pulse Oximetry 96 05/04/20 16:32 MDM - Weakness MDM Narrative Medical decision making narrative: Inform patient's about his lab work CT findings. At this time I do not see any obvious reason for his weakness. She prefers to take him home. Does not want to be admitted to the hospital or to a prison. She states that she has caregiver is at home Lab Data Result diagrams: 05/04/20 15:09 05/04/20 15:09 Labs: Lab Results 05/04/20 05/04/20 05/04/20 Range/Units 14:32 15:09 15:09 WBC 5.5 (4.5-10.0) K/mm3 RBC 3.60 L (4.6-6.20) M/mm3 Hgb 11.2 L (14.0-18.0) g/dL Hct 32.5 L (42.0-52.0) % MCV 90.3 (80-100) fl MCH 31.1 (26-34) pg MCHC 34.5 (32-36) g/dl RDW 13.2 (11.5-14.5) % Plt Count 174 (150-375) k/mm3 MPV 9.7 (7.4-10.4) fl Immature Gran % (Auto) 0.5 (0-0.5) % Neut % (Auto) 67.0 (45.5-73.1) % Lymph % (Auto) 21.3 (18.3-44.2) % Emmet % (Auto) 10.2 H (2.6-8.5) % Eos % (Auto) 0.5 (0-4.4) % Baso % (Auto) 0.5 (0.2-1.2) % Lymph # (Auto) 1.17 (0.9-3.2) K/mm3 Emmet # (Auto) 0.6 (0.1-0.6) K/mm3 Eos # (Auto) 0.0 (0-0.3) K/mm3 Baso # (Auto) 0.0 (0.0-0.1) K/mm3 Abs Immat Gran (auto) 0.03 (0.00-0.031) K/mm3 Absolute Neuts (auto) 3.7 (1.3-6.7) K/mm3 Absolute Nucleated RBC 0.0 (0.0-0.012) K/mm3 Nucleated RBC % 0.0 (0.0-0.2) % So
== END 2020-05-04 18:59 | disposition home or self-care (01) ==
PROVIDERS: Emergency Provider Family Medicine; PCP Family Medicine
DX: R53.1 Weakness (principal); G31.83 Neurocognitive disorder with Lewy bodies; F02.80 Dementia in other diseases classified elsewhere, unspecified severity, without behavioral disturbance, psychotic disturbance, mood disturbance, and anxiety
CPT/HCPCS: 36415; 70450; 71045; 80053; 81001; 83605; 83880; 84443; 84484; 85025; 93005; 99284

== ENCOUNTER 2020-10-12 09:58 | Observation (INO) | payer MEDICARE, SELFPAY ==
[2020-10-12] VITALS (23 sets, daily range): BP systolic 125–194; BP diastolic 64–115; PULSE 66–99; RESP 12–22; TEMP 36.2–36.6; O2SAT 88–100; BMI 19.2
--- NOTE | ~2020-10-12 | CT_ITS ---
EXAMINATION: CT abdomen pelvis w con DATE: 10/12/2020 12:00 INDICATION: Low abdominal pain TECHNIQUE: Computed tomography (CT) of the abdomen and pelvis was performed with 100 cc Omnipaque 350 intravenous contrast. Automated exposure control and iterative reconstruction technique were employe d. Exam dose: 546.29 mGy-cm total exam DLP. COMPARISON: 01/23/2019 CT abdomen pelvis noncontrast examination FINDINGS: Cardiomegaly. Coronary atherosclerotic calcifications. There is discoid atelectasis or scar ring in the anterior segment of the right lower lobe. The lung bases are clear of consolidation other rosenberg. No pericardial or pleural effusion. The liver, spleen, pancreas, and adrenal glands and kidneys are unremarkable. The gallbladder is present. Gallstones are not excluded. No gallbladder wall thickening or pericholec ystic fluid or inflammation is evident. No bile duct dilatation is evident. No pancreatic calcificati on. There is extensive calcification of the abdominal aorta but no aneurysm. There is calcification of th e iliac and femoral arteries. No intraperitoneal or retroperitoneal or pelvic mass lesion or adenopat hy or ascites. There is moderate thickening of the urinary bladder wall and prostate enlargement. There is a prominent amount of fecal material in the rectum and colon. No bowel obstruction, bowel wa ll thickening, pneumatosis or intraperitoneal free air is evident. Diffuse osteopenia. There is scoliosis and degenerative change of the thoracic and lumbar spine. Diffuse osteopenia. IMPRESSION: Cardiomegaly, coronary artery and aortic atherosclerotic calcification Prostate enlargement and moderate thickening of the urinary bladder wall Material in rectum and colon; no bowel obstruction is evident Reviewed, dictated and finalized at [facility]. Reviewed, dictated and finalized at location [facility]. OR FINANCIAL ANALYST IMPRESSION: Cardiomegaly, coronary artery and aortic atherosclerotic calcifica tion Prostate enlargement and moderate thickening of the urinary bladder wall Material in rectum and colon; no bowel obstruction is evident
--- NOTE | ~2020-10-12 | XR_ITS ---
XR chest 1V portable DATE: 10/12/2020 10:43 INDICATION: Diminished level of awareness TECHNIQUE: Portable AP chest on 01/09/2021 at 1046 hours COMPARISON: 05/04/2020 portable AP chest FINDINGS: Heart size is normal. The lungs appear mildly hyperinflated. Chronic interstitial changes a re noted, especially the right lung. No pulmonary consolidation, pleural effusion, pulmonary vascular congestion or pneumothorax is evident. Aortic calcification. No hilar or mediastinal enlargement. Diffuse osteopenia. IMPRESSION: Moderate hyperinflation Chronic interstitial changes involving particularly the right lung Reviewed, dictated and finalized at location [facility]. S REPRESENTATIVE GRAPHIC ART
--- NOTE | ~2020-10-12 | CT_ITS ---
EXAMINATION: CT brain wo con DATE: 10/12/2020 11:55 INDICATION: Confusion TECHNIQUE: Computed tomography (CT) of the head was performed without intravenous contrast. The mA wa s adjusted according to patient size. Iterative reconstruction technique was employed. Exam dose: 68 1.00 mGy-cm total exam DLP. COMPARISON: 05/04/2020 CT brain FINDINGS: No intracranial mass lesion or hemorrhage or cerebrovascular accident is evident. No midlin e shift or mass effect. No subdural or epidural hematoma is detected. There is central and cortical cerebral and cerebellar atrophy. There is nonspecific diminished attenuation cerebral white matter, likely due to chronic small vessel ischemic changes. The mastoid air cells and paranasal sinuses are normally developed and aerated. No fracture or bone destruction of the cranial vault. IMPRESSION: No acute intracranial finding or significant change since 05/04/2020 Reviewed, dictated and finalized at [facility]. Reviewed, dictated and finalized at location [facility]. EE SHOP AIDE
--- NOTE | 2020-10-12 10:13 | ECG_ITS ---
Measurements Intervals [place] Rate: 68 P: 41 VA: 187 QRS: -20 QRSD: 94 T: 50 QT: 415 QTc: 441 Interpretive Statements SINUS RHYTHM BORDERLINE R WAVE PROGRESSION, ANTERIOR LEADS BASELINE ARTIFACT- I, II, III, AVR, AVL, AVF, V1-V6 BORDERLINE ECG Electronically Signed On 10-12-2020 12:59:16 SYNCHRONOUS MOTOR ASSEMBLER by Christian Means D.O.
[2020-10-12] MEDS: ONDANSETRON INJ 4 MG/2 ML VIAL IV PUSH (10:20)
[2020-10-12] MEDS: HYDROmorphone HCL INJ (*CRX) 1 MG/ML SYR IV PUSH (10:20)
[2020-10-12 10:33] LABS: Basophils Percent Auto 0.4 % (0.2-1.2); Eosinophils Percent Auto 0.3 % (0-4.4); Hemoglobin 13.2 g/dL (14.0-18.0); Immature Granulocyte Absolute 0.04 K/mm3 (0.00-0.031); Immature Granulocyte Percent A 0.6 % (0-0.5); Lymphocytes Absolute Auto 0.92 K/mm3 (0.9-3.2); Lymphocytes Percent Auto 12.8 % (18.3-44.2); Mean Corpuscular HGB Conc 34.7 g/dl (32-36); Mean Corpuscular Hemoglobin 31.4 pg (26-34); Mean Corpuscular Volume 90.3 fl (80-100); Monocytes Absolute Auto 0.6 K/mm3 (0.1-0.6); Monocytes Percent Auto 7.9 % (2.6-8.5); Neutrophils Absolute Auto 5.6 K/mm3 (1.3-6.7); Platelet Count Result 192 k/mm3 (150-375); Red Blood Count 4.21 M/mm3 (4.6-6.20); Red Cell Distribution Width 13.2 % (11.5-14.5); White Blood Count 7.2 K/mm3 (4.5-10.0)
[2020-10-12 10:42] LABS: Lipase 117 U/L (23-300)
[2020-10-12 10:44] LABS: INR 1.2; Prothrombin Time 15.4 Seconds (11.1-14.7)
[2020-10-12 10:45] LABS: Alanine Aminotransferase 126 U/L (4-50); Albumin Level 4.4 g/dL (3.5-5.1); Alkaline Phosphatase 109 U/L (38-126); Anion Gap 4 mmol/L (8-16); Aspartate Amino Transferase 48 U/L (17-59); Bilirubin,Total 1.2 mg/dL (0.2-1.3); Blood Urea Nitrogen 14 mg/dL (9-20); Calcium 9.7 mg/dL (8.4-10.2); Carbon Dioxide 32 mmol/L (22-30); Chloride 94 mmol/L (98-107); Estimated CRCL calculation 89 ml/min; Estimated Glomerular Filt Rate > 60; Glucose 95 mg/dL (75-110); Partial Thromboplastin Time 31.9 SECONDS (22.3-36.8); Potassium 4.7 mmol/L (3.4-5.0); Sodium 130 mmol/L (137-145)
[2020-10-12 10:52] LABS: Add Urine Microscopic? YES; Appearance Urine Cloudy (Clear); Bacteria Urine Trace /hpf; Bilirubin Urine Negative (Negative); Blood Urine Negative (Negative); Color Urine Yellow (Yellow); Glucose Urine UA Negative (Negative); Ketones Urine Negative (Negative); Leukocyte Esterase Ur 3+ LEU/UL (Negative); Mucus Urine Rare /lpf; Nitrate Urine Negative (Negative); Protein Urine Negative (Negative); Specific Grav Ur 1.012 (1.001-1.035); WBC Clumps Urine Present /HPF; WBC Urine >75 /hpf
[2020-10-12 10:55] LABS: Troponin I < 0.012 ng/mL (0.000-0.034)
[2020-10-12 11:22] LABS: Lactic Acid Reflex 0.8 mmol/L (0.7-2.1)
--- NOTE | 2020-10-12 11:37 | ED.AMS ---
HPI - Altered Mental Status General Chief Complaint: Altered Mental Status Stated Complaint: confused Time Seen by Provider: 10/12/20 10:01 Source: family Mode of arrival: EMS Limitations: dementia History of Present Illness HPI narrative: This patient is a 75 year old male with history of dementia,hyperlipidemia, hypertension who presents via EMS for concerns of increasing confusion. He lives at home with his . She states over the past 1-2 days he is been increasing confused. She states he appears to be in pain but he will not state where. HE has not been eating or drinking over the past 2 days. She states he fell out of bed last night. She denies fever, vomiting, diarrhea, or cough. EMS reports patient told him he hurts all over. Related Data Home Medications Medication Instructions Recorded Confirmed apixaban 5 mg tablet 5 mg PO BID 01/09/20 10/12/20 atorvastatin 20 mg tablet 20 mg PO DAILY 06/12/20 10/12/20 omeprazole [Prilosec] 20 mg PO DAILY 10/12/20 10/12/20 Allergies Allergy/AdvReac Type Severity Reaction Status Date / Time No Known Allergies Allergy Verified 10/12/20 10:03 Review of Systems Review of Systems: ROS unobtainable: Yes unobtainable due to mental status PMFSH Past Medical History Medical History (Updated 10/12/20 @ 18:54 by Katrina Quick MD) Acute non-recurrent maxillary sinusitis Ny's esophagus with esophagitis BPH without obstruction/lower urinary tract symptoms Conjunctivitis Dementia associated with Parkinson's disease Essential (primary) hypertension Hyponatremia Impacted cerumen of both ears Mixed hyperlipidemia Recurrent deep vein thrombosis (DVT) Schizophrenia in remission Vitamin D insufficiency Surgical History Surgical History (Updated 11/28/19 @ 15:23 by Vance Mohr MD) History of exploratory laparotomy for bowel obstruction Family History Family History (Updated 10/12/20 @ 16:46 by Kate Aguila RN) Mother Family history of cardiovascular disease, Onset Age: 80 Father Acute myocardial infarction, Onset Age: 72 Sibling Diabetes mellitus Other Family history of lupus erythematosus Hypertension Social History Social History Smoking status: Never smoker Second hand tobacco smoke exposure: Yes ( many years from brother and work ) Alcohol intake: never Substance use: never Additional living arrangements comments: Lives at home with spouse. Gender identity (if verbalized by the patient): Male Spiritual care concerns: No Agree to blood products: Yes Exam Const: General: alert Other: patient will not answer questions, disoriented HENMT: Head: normocephalic and atraumatic Face and sinus: face symmetric Eyes: EOM: EOMs intact bilaterally Resp: Effort & Inspection: normal respiratory effort and no retractions Auscultation: clear to auscultation bilaterally GI: GI Palp: Yes Soft to palpation, Yes Tenderness to palpation present (GI) (Diffuse, grimacing) and No Guarding due to palpation present (GI) Auscultation: normal bowel sounds Skin: General skin exam: normal color Neuro: General: moves all extremities and CN's II-XI intact bilaterally Course Consultations Consultation #1: I Discussed case with Erika Gardner. Patient found to have UTI. He appears more confused per his . She agrees to obs Date: 10/12/20 Time: 14:00 Vital Signs Vital signs: Vital Signs Temperature 97.1 F L 10/12/20 09:54 Pulse Rate 70 10/12/20 09:54 Respiratory Rate 16 10/12/20 09:54 Blood Pressure 194/115 H 10/12/20 09:54 Pulse Oximetry 100 10/12/20 09:54 Temperature 97.5 F L 10/12/20 16:00 Pulse Rate 73 10/12/20 16:00 Respiratory Rate 16 10/12/20 16:00 Blood Pressure 173/77 H 10/12/20 16:00 Pulse Oximetry 97 10/12/20 16:00 MDM - Altered Mental Status Lab Data Attestation: I reviewed the patient's l
--- NOTE | 2020-10-12 16:04 | ADMGEN ---
This patient, Michael Anna, was admitted to 3 [facility] Surg Room 306-01 @ 1600. Patient/family oriented to hospital policies and general routines including ID bracelet, bed and alarms, visiting hours, pain management, procedures, bathroom and other care routines, personal items, smoking policy, room service/diet, and visiting hours. Information on how to activate the Rapid Response Team has been discussed. Patient/Family are encouraged to report perceived risks to care and to ask questions if they do not understand what they are told or what they should do.
[2020-10-12] MEDS: SODIUM CHLORIDE 0.9% IV 1,000 ML 125 ML IV CONT (16:16)
--- NOTE | 2020-10-12 19:27 | PM.IMHP ---
H&P: HPI History of Present Illness Date/Time: 10/12/20 19:27 Chief Complaint: Acute Confusion for 2 days. Narrative: This is a demented 75 year old male with known Parkinson's disease on chronic anticoagulation w/ Eliquis among other comorbidities who was brought to the hospital today by his secondary to increased confusion for the past 2 days. She also complained that the patient was not eating or drinking and fell out of bed last night. The patient himself is only oriented to himself and when I ask him why he is here he states, I don't know . Routine labs were obtained which demonstrated a grossly abnormal urinalysis. CT brain was obtained which did not demonstrate any acute intracranial abnormality. He was treated with IV fluids and IV antibiotics in the ER tonight. On my encounter with the patient he denies any significant symptoms at this time such as chest pain, fevers, cough, shortness of breath, abdominal pain, dysuria, hematuria, diarrhea, nausea, or rectal bleeding. No other history is obtainable at this time as there is no family present. Review of Systems Review of Systems: All systems reviewed & are unremarkable except as noted in HPI and below PMFSH Past Medical History Medical History Acute non-recurrent maxillary sinusitis Ny's esophagus with esophagitis BPH without obstruction/lower urinary tract symptoms Conjunctivitis Dementia associated with Parkinson's disease Essential (primary) hypertension Hyponatremia Impacted cerumen of both ears Mixed hyperlipidemia Recurrent deep vein thrombosis (DVT) Schizophrenia in remission Vitamin D insufficiency Surgical History Surgical History History of exploratory laparotomy for bowel obstruction Family History Family History Mother Family history of cardiovascular disease, Onset Age: 80 Father Acute myocardial infarction, Onset Age: 72 Sibling Diabetes mellitus Other Family history of lupus erythematosus Hypertension Social History Social History Smoking status: Never smoker Second hand tobacco smoke exposure: Yes ( many years from brother and work ) Alcohol intake: never Substance use: never Additional living arrangements comments: Lives at home with spouse. Gender identity (if verbalized by the patient): Male Spiritual care concerns: No Agree to blood products: Yes Meds Home Medications and Allergies Home Medications Medication Instructions Recorded Confirmed Type apixaban 5 mg tablet 5 mg PO BID 01/09/20 10/12/20 History carbidopa 25 mg-levodopa 100 mg 1 tablet PO TID #90 tablet 02/06/20 10/12/20 Rx tablet finasteride 5 mg tablet 5 mg PO DAILY #30 tablet 02/06/20 10/12/20 Rx metoprolol tartrate 25 mg tablet 25 mg PO BID #60 tablet 02/06/20 10/12/20 Rx lisinopril 10 mg tablet 10 mg PO DAILY #90 tablet 05/08/20 10/12/20 Rx tamsulosin 0.4 mg capsule 0.8 mg PO DAILY #60 cap 05/26/20 10/12/20 Rx atorvastatin 20 mg tablet 20 mg PO DAILY 06/12/20 10/12/20 History cholecalciferol (vitamin D3) 1,250 1,250 mcg PO WEEKLY #4 cap 09/15/20 10/12/20 Rx mcg (50,000 unit) capsule omeprazole [Prilosec] 20 mg PO DAILY 10/12/20 10/12/20 History Allergies Allergy/AdvReac Type Severity Reaction Status Date / Time No Known Allergies Allergy Verified 10/12/20 19:03 Vital Signs Vital Signs - 24 hr 10/12/20 09:54 10/12/20 10:21 10/12/20 10:25 Temperature 36.2 C L Pulse Rate 70 69 66 Respiratory Rate 16 22 H 17 Blood Pressure 194/115 H 193/71 H Pulse Oximetry 100 100 95 10/12/20 10:30 10/12/20 10:31 10/12/20 10:45 Temperature Pulse Rate 71 70 66 Respiratory Rate 18 19 12 Blood Pressure 173/95 H 167/77 H Pulse Oximetry 88 L 96 10/12/20 10:46 10/12/20
[2020-10-12 20:04] LABS: Alveolar/Arterial O2 Gradient 20.4 mmHg; Base Excess ABG 4.3 mEq/l (+/-2.0); Device ROOM AIR; Fractional Inspired Oxygen 21 %; HCO3 ABG 29.3 mEq/l (22.0-26.0); Oxygen Content ABG 16.6 %vol (16.0-22.0); Oxygen Saturation ABG 95.3 % (95.0-100.0); Oxyhemoglobin 94.4 % THb (90.0-100.0); PCO2 ABG 45.3 mmHg (35.0-45.0); PO2 ABG 75.1 mmHg (80.0-100.0); PO2 FiO2 Ratio Arterial Blood 3.58 %; Site Drawn RIGHT BRACHIAL; Total Hemoglobin 12.5 g/dL (12.0-18.0); pH ABG 7.428 (7.350-7.450)
[2020-10-12 20:06] LABS: Ammonia < 9 umol/L (9-30)
[2020-10-12] MEDS: CARBIDOPA/LEVODOPA 25/100 MG TABLET 1 TABLET PO (21:53)
[2020-10-12] MEDS: METOPROLOL TARTRATE 25 MG TABLET PO (21:53)
[2020-10-13] VITALS (10 sets, daily range): BP systolic 111–159; BP diastolic 53–76; PULSE 68–90; RESP 18–20; TEMP 36.4–36.7; O2SAT 94–100; BMI 19.2
[2020-10-13] MEDS: SODIUM CHLORIDE 0.9% IV 1,000 ML 125 ML IV CONT ×3 (00:41→17:54)
[2020-10-13] MEDS: CARBIDOPA/LEVODOPA 25/100 MG TABLET 1 TABLET PO ×3 (05:51→21:24)
[2020-10-13 09:10] LABS: Thyroid Stimulating Hormone Reflex 0.962 uIU/mL (0.465-4.68)
[2020-10-13 09:13] LABS: Folic Acid > 20.0 ng/mL (2.76->20)
[2020-10-13] MEDS: METOPROLOL TARTRATE 25 MG TABLET PO ×2 (09:14→21:24)
[2020-10-13] MEDS: ERGOCALCIFEROL 50,000 UNIT CAPSULE 50000 UNITS PO (09:16)
[2020-10-13] MEDS: PANTOPRAZOLE 40 MG TABLET PO (09:16)
[2020-10-13] MEDS: FINASTERIDE 5 MG TABLET PO (09:16)
[2020-10-13] MEDS: TAMSULOSIN HCL 0.4 MG CAPSULE 0.8 MG PO (09:16)
[2020-10-13] MEDS: lisinopriL 10 MG TABLET PO (09:17)
[2020-10-13] MEDS: ATORVASTATIN 20 MG TABLET PO (09:17)
[2020-10-13] MEDS: APIXABAN 5 MG TABLET PO ×2 (09:17→17:54)
--- NOTE | 2020-10-13 11:08 | PM.IMPN ---
Progress Note: A&P Assessment and Plan (1) Acute encephalopathy: Code(s): G93.40 - Encephalopathy, unspecified Status: Acute Assessment and Plan: Acute worsening encephalopathy may be secondary to acute dehydration, continue fluids (2) Abnormal urinalysis: Code(s): R82.90 - Unspecified abnormal findings in urine Status: Acute Assessment and Plan: ? UTI, Continue IV antibiotics, urine culture pending. (3) Chronic anticoagulation: Code(s): Z79.01 - terminal makeup operator (current) use of anticoagulants Status: Chronic Assessment and Plan: The patient appears to be on chronic anticoagulation due to recurrent DVTs. (4) Chronic hyponatremia: Code(s): E87.1 - Hypo-osmolality and hyponatremia Status: Chronic Assessment and Plan: Monitor serum sodium. (5) Chronic anemia: Code(s): D64.9 - Anemia, unspecified Status: Chronic Assessment and Plan: No signs of acute blood loss. Likely anemia of chronic disease. Monitor CBC. (6) Dementia associated with Parkinson's disease: Code(s): G20 - Parkinson's disease; F02.80 - Dementia in other diseases classified elsewhere without behavioral disturbance Status: Chronic Assessment and Plan: Continue Sinemet. (7) Mixed hyperlipidemia: Code(s): E78.2 - Mixed hyperlipidemia Status: Chronic Assessment and Plan: Continue statin therapy. (8) Essential (primary) hypertension: Code(s): I10 - Essential (primary) hypertension Status: Chronic Assessment and Plan: Elevated. monitor blood pressure. Continue metoprolol and lisinopril. Additional Plan Subjective Date/time seen: 10/13/20 11:08 Interval history: Demented 75 year old male with known Parkinson's disease on chronic anticoagulation w/ Eliquis among other comorbidities who was brought to the hospital today by his secondary to increased confusion, still appears confused. BC are negative, UC is pending. CT head negative. Review of Systems Review of Systems: All systems reviewed & are unremarkable except as noted in HPI and below Exam Const: Orientation/consciousness: confusion Resp: Auscultation: clear to auscultation bilaterally Cardio: Rate: regular rate Rhythm: regular rhythm Heart sounds: no murmurs GI: Inspection: normal to inspection Auscultation: normal bowel sounds Skin: General skin exam: normal color and no rashes or lesions noted Neuro: General: oriented to person and confusion Cranial nerves: Yes CN's II-XII intact bilaterally and Yes Equal, round and reactive pupils present Speech: normal speech Motor exam (neuro): 5/5 motor strength present throughout Sensory Exam: normal sensation Extrem: General: normal to inspection and no edema Objective Data Vital Signs Vital Signs: Vital Signs - 24 hr 10/12/20 11:15 10/12/20 11:34 10/12/20 12:02 Temperature Pulse Rate 66 66 76 Respiratory Rate 15 17 14 Blood Pressure 140/64 137/84 Pulse Oximetry 94 96 95 10/12/20 13:36 10/12/20 13:45 10/12/20 13:46 Temperature Pulse Rate 91 83 Respiratory Rate 17 16 16 Blood Pressure 173/74 H Pulse Oximetry 10/12/20 14:00 10/12/20 14:01 10/12/20 15:29 Temperature Pulse Rate 87 87 81 Respiratory Rate 15 16 17 Blood Pressure 135/84 165/80 H Pulse Oximetry 100 10/12/20 15:39 10/12/20 16:00 10/12/20 16:29 Temperature 36.4 C L Pulse Rate 87 73 75 Respiratory Rate 18 16 Blood Pressure 165/80 H 173/77 H Pulse Oximetry 100 97 10/12/20 21:00 10/12/20 21:53 10/12/20 22:00 Temperature 36.6 C Pulse Rate 95 75 99 Respiratory Rate 18 Blood Pressure 125/95 H Pulse Oximetry 97 10/13/20 00:00 10/13/20 04:02 10/13/20 06:00 Temperature 36.4 C L Pulse Rate 73 76 68 Respiratory Rate 20 Blood Pressure 159/76 H Pulse Oximetry 99 10/13/20 08:00 10/13/20 09:14 10/13/20 10:21 Temperature Pulse Rate
--- NOTE | 2020-10-13 13:24 | PCOTNOTE ---
Attempted OT evaluation, patient currently eating lunch and reports does not want to get out of bed at this time, will follow, RN notified
[2020-10-13] MEDS: TOBRAMYCIN 0.3% OPHTH SOLN 5 ML 1 DROP EACH EYE (21:32)
[2020-10-14] MEDS: TOBRAMYCIN 0.3% OPHTH SOLN 5 ML 1 DROP EACH EYE ×4 (00:15→17:38)
[2020-10-14] MEDS: SODIUM CHLORIDE 0.9% IV 1,000 ML 125 ML IV CONT ×3 (01:58→17:38)
[2020-10-14] MEDS: CARBIDOPA/LEVODOPA 25/100 MG TABLET 1 TABLET PO ×3 (05:17→21:50)
[2020-10-14 05:36] VITALS: BP 149/50; PULSE 65; RESP 20; TEMP 36.5; O2SAT 99
[2020-10-14 06:47] LABS: Anion Gap 1 mmol/L (8-16); Blood Urea Nitrogen 12 mg/dL (9-20); Calcium 8.2 mg/dL (8.4-10.2); Carbon Dioxide 29 mmol/L (22-30); Chloride 101 mmol/L (98-107); Estimated CRCL calculation 90 ml/min; Estimated Glomerular Filt Rate > 60; Glucose 85 mg/dL (75-110); Potassium 3.4 mmol/L (3.4-5.0); Sodium 131 mmol/L (137-145)
[2020-10-14 08:32] VITALS: PULSE 68
[2020-10-14] MEDS: ATORVASTATIN 20 MG TABLET PO (08:32)
[2020-10-14] MEDS: polyethylene glycoL 3350 17 GM POWD.PACK PO (08:32)
[2020-10-14] MEDS: APIXABAN 5 MG TABLET PO ×2 (08:32→17:37)
[2020-10-14] MEDS: FINASTERIDE 5 MG TABLET PO (08:32)
[2020-10-14] MEDS: METOPROLOL TARTRATE 25 MG TABLET PO (08:32)
[2020-10-14] MEDS: TAMSULOSIN HCL 0.4 MG CAPSULE 0.8 MG PO (08:32)
[2020-10-14] MEDS: PANTOPRAZOLE 40 MG TABLET PO (08:32)
[2020-10-14] MEDS: lisinopriL 10 MG TABLET PO (08:32)
[2020-10-14 14:00] VITALS: BP 134/55; PULSE 58; RESP 20; TEMP 36.7; O2SAT 100
--- NOTE | 2020-10-14 18:35 | PM.IMPN ---
Progress Note: A&P Assessment and Plan (1) UTI (urinary tract infection): Code(s): N39.0 - Urinary tract infection, site not specified Status: Acute Assessment and Plan: On Rocephin Improved. (2) Hyponatremia: Code(s): E87.1 - Hypo-osmolality and hyponatremia Status: Acute Assessment and Plan: Continue to monitor Trending up (3) Acute encephalopathy: Code(s): G93.40 - Encephalopathy, unspecified Status: Acute Assessment and Plan: Back to his basline (4) Dementia associated with Parkinson's disease: Code(s): G20 - Parkinson's disease; F02.80 - Dementia in other diseases classified elsewhere without behavioral disturbance Status: Chronic Assessment and Plan: Unchanged Supportive care (5) Essential (primary) hypertension: Code(s): I10 - Essential (primary) hypertension Status: Chronic Assessment and Plan: Continue home meds Continue to monitor (6) Ny's esophagus with esophagitis: Code(s): K22.70 - Ny's esophagus without dysplasia; K20.9 - Esophagitis, unspecified Status: Acute Assessment and Plan: Follow up in the outpatient setting. Subjective Date/time seen: 10/14/20 18:35 I feel fine. Review of Systems Review of Systems: Narrative: No new events over night. Exam Narrative: Exam Narrative: Lying in bed. Const: General: comfortable, no acute distress, alert, awake and Physically active Nutritional Appearance: average body habitus Orientation/consciousness: patient oriented x3 HENMT: Head: normal to inspection and normocephalic Ears: hearing grossly normal bilaterally General nose exam: Normal external nose present Face and sinus: normal facial exam Eyes: General: appearance normal, both eyes and all related structures Pupils: Equal, round and reactive pupils present EOM: EOMs intact bilaterally Neck: Neck: no lymphadenopathy, supple and no JVD Resp: Effort & Inspection: normal respiratory effort and able to speak in complete sentences Auscultation: clear to auscultation bilaterally Cardio: Jugular venous distension: no JVD Rate: regular rate Rhythm: regular rhythm GI: GI Palp: Yes Soft to palpation and Yes No hepatosplenomegaly present Skin: Rashes: no rashes Neuro: General: patient oriented x3 and CN's II-XI intact bilaterally Cranial nerves: Yes CN's II-XII intact bilaterally and Yes Equal, round and reactive pupils present Cognition (Neuro): normal cognition Motor exam (neuro): 5/5 motor strength present throughout Extrem: General: no pedal edema Objective Data Vital Signs Vital Signs: Vital Signs - 24 hr 10/13/20 21:20 10/13/20 21:24 10/13/20 22:00 Temperature 98.0 F Pulse Rate 72 76 72 Respiratory Rate 18 18 Blood Pressure 152/76 H Pulse Oximetry 94 94 10/14/20 05:36 10/14/20 08:32 10/14/20 14:00 Temperature 97.7 F 98.0 F Pulse Rate 65 68 58 L Respiratory Rate 20 20 Blood Pressure 149/50 H 134/55 L Pulse Oximetry 99 100 Intake/Output Intake/Output: Intake & Output 10/11/20 10/12/20 10/13/20 10/14/20 23:59 23:59 23:59 23:59 Intake Total 170 3460 3480 Balance 170 3460 3480 Meds/Results Medications: Active Medications Generic Name Dose Route Start Last Admin Trade Name Yordanq PRN Reason Stop Dose Admin Apixaban 5 mg 10/13/20 09:00 10/14/20 17:37 Apixaban 5 Mg Tablet PO 5 mg BID ASPEN Administration Atorvastatin Calcium 20 mg 10/13/20 09:00 10/14/20 08:32 Atorvastatin 20 Mg Tablet PO 20 mg DAILY ASPEN Administration Carbidopa/Levodopa 1 tablet 10/12/20 22:00 10/14/20 12:48 Carbidopa/Levodopa 25/100 Mg Tablet PO 1 tablet Q8HR ASPEN Administration Ergocalciferol 50,000 unit 10/13/20 09:00 10/13/20 09:16 Ergocalciferol 50,000 Unit Capsule PO 50,000 unit Mo@0900 ASPEN Administration Finasteride 5 mg 10/13/20 09:00 10/14/20 08:32 Finasteride 5 Mg Tablet PO 5 mg DAILY
[2020-10-14 21:49] VITALS: PULSE 48
[2020-10-14 22:00] VITALS: BP 130/50; PULSE 54; RESP 18; TEMP 36.5; O2SAT 94
[2020-10-15] MEDS: TOBRAMYCIN 0.3% OPHTH SOLN 5 ML 1 DROP EACH EYE ×3 (01:25→11:41)
[2020-10-15] MEDS: SODIUM CHLORIDE 0.9% IV 1,000 ML 125 ML IV CONT ×2 (02:20→10:39)
[2020-10-15 06:00] VITALS: BP 160/60; PULSE 60; RESP 16; TEMP 36.5; O2SAT 99
[2020-10-15] MEDS: CARBIDOPA/LEVODOPA 25/100 MG TABLET 1 TABLET PO (06:07)
[2020-10-15 09:00] VITALS: PULSE 72
[2020-10-15] MEDS: PANTOPRAZOLE 40 MG TABLET PO (09:00)
[2020-10-15] MEDS: FINASTERIDE 5 MG TABLET PO (09:00)
[2020-10-15] MEDS: TAMSULOSIN HCL 0.4 MG CAPSULE 0.8 MG PO (09:00)
[2020-10-15] MEDS: lisinopriL 10 MG TABLET PO (09:00)
[2020-10-15] MEDS: METOPROLOL TARTRATE 25 MG TABLET PO (09:00)
[2020-10-15] MEDS: APIXABAN 5 MG TABLET PO (09:01)
[2020-10-15] MEDS: ATORVASTATIN 20 MG TABLET PO (09:01)
[2020-10-15] MEDS: polyethylene glycoL 3350 17 GM POWD.PACK PO (09:01)
--- NOTE | 2020-10-15 11:31 | PM.DS ---
DS: Admitting Diagnosis Admitting Diagnosis Admitting Diagnosis: (1) Acute encephalopathy: (2) Abnormal urinalysis: . (3) Chronic anticoagulation: (4) Chronic hyponatremia: (5) Chronic anemia: (6) Dementia associated with Parkinson's disease: (7) Mixed hyperlipidemia: (8) Essential (primary) hypertension: DS: Discharge Diagnosis Discharge Diagnosis (1) UTI (urinary tract infection): Code(s): N39.0 - Urinary tract infection, site not specified Status: Acute Assessment and Plan: Treated with Rocephin initially Ua cx showed mixed steve hence Rocephin was discontinued no need to treat. (2) Acute encephalopathy: Code(s): G93.40 - Encephalopathy, unspecified Status: Acute Assessment and Plan: Patient is back to his baseline at time of discharge. (3) Dementia associated with Parkinson's disease: Code(s): G20 - Parkinson's disease; F02.80 - Dementia in other diseases classified elsewhere without behavioral disturbance Status: Chronic Assessment and Plan: Continue Sinemet Follow up in the outpatient setting. (4) Essential (primary) hypertension: Code(s): I10 - Essential (primary) hypertension Status: Chronic Assessment and Plan: Stable Continue to monitor Continue home meds (5) Recurrent deep vein thrombosis (DVT): Code(s): I82.409 - Acute embolism and thrombosis of unspecified deep veins of unspecified lower extremity Status: Acute Assessment and Plan: On chronic anticoagulation. DS: Summary Hospital Course Reason for hospitalization: Altered mental status Hospital Course: This is a demented 75 year old male with Parkinson's disease on chronic anticoagulation w/ Eliquis among other comorbidities who was brought to the hospital today by his due to increased confusion for the past 2 days. She states that the patient was not eating or drinking and fell out of bed last night. The patient himself is only oriented to himself . Routine labs were obtained which demonstrated a grossly abnormal urinalysis. CT brain was obtained which did not demonstrate any acute intracranial abnormality. He was treated with IV fluids and IV antibiotics in the ER initially. Patient was admitted to [facility] and was continued on broad spectrum antibiotics, he had an uneventful hospital stay. He received iv fluids and his sodium came back up. A ua cx returned with mixed steve and Rocephin was discontinued. Patient was discharged home with home health services. Status at Discharge Overall status at discharge: patient is back to baseline Time Spent with Patient Time attestation: Total time spent providing and/or coordinating discharge services: Time spent: Greater than 30 minutes Exam Const: General: cooperative, no acute distress, alert and awake Nutritional Appearance: average body habitus Orientation/consciousness: oriented to person HENMT: Head: normocephalic and atraumatic Ears: hearing grossly normal bilaterally Face and sinus: normal facial exam Eyes: Pupils: Equal, round and reactive pupils present EOM: EOMs intact bilaterally Neck: Neck: no lymphadenopathy and no JVD Resp: Effort & Inspection: normal respiratory effort Auscultation: clear to auscultation bilaterally Cardio: Jugular venous distension: no JVD Rate: regular rate Rhythm: regular rhythm GI: GI Palp: Yes Soft to palpation and Yes No hepatosplenomegaly present Skin: Rashes: no rashes Neuro: General: oriented to person Cranial nerves: Yes CN's II-XII intact bilaterally and Yes Equal, round and reactive pupils present Cognition (Neuro): abnormal cognition (Dementia) Motor exam (neuro): 5/5 motor strength present throughout DS: Data Data Completed and Pending Completed studies during hospitalization: EXAMINATION: CT brain wo con DATE: 10/12/2020 11:55 INDICATION: Confusion TECHNIQUE: Computed tomography (C
== END 2020-10-15 12:30 | disposition home health service (06) ==
LOC: ANHED 10:14 → ANH3MEDSUR 18:54
PROVIDERS: Family Medicine; Admitting Provider Internal Medicine; Emergency Provider General Practice; PCP Family Medicine; Visit Provider Internal Medicine
DX: N39.0 Urinary tract infection, site not specified (principal); G93.40 Encephalopathy, unspecified; D64.9 Anemia, unspecified; E87.1 Hypo-osmolality and hyponatremia; E86.0 Dehydration; I10 Essential (primary) hypertension; I82.409 Acute embolism and thrombosis of unspecified deep veins of unspecified lower extremity; E78.5 Hyperlipidemia, unspecified; N40.0 Benign prostatic hyperplasia without lower urinary tract symptoms; G20 Parkinson's disease; F02.80 Dementia in other diseases classified elsewhere, unspecified severity, without behavioral disturbance, psychotic disturbance, mood disturbance, and anxiety; E78.2 Mixed hyperlipidemia; E55.9 Vitamin D deficiency, unspecified; Z79.01 Long term (current) use of anticoagulants
CPT/HCPCS: 36415; 36600; 70450; 71045; 74177; 80048; 80053; 81001; 82140; 82607; 82746; 82805; 83605; 83690; 84443; 84484; 85025; 85610; 85730; 87086; 87088; 93005; 96361; 96365; 96366; 96374; 96375; 96376; 97110; 97162; 97165; 97530; 99285; A9270; G0378; J0696; J1170; J2405; J7030; Q9967